=== PATIENT | male | born 1970 | race Hispanic/Latino ===

== ENCOUNTER 2018-01-29 12:39 | Inpatient (IN) | payer OTHER ==
[~2018-01-29] VITALS: Ht 170.2 cm; Wt 90.0 kg
[2018-01-29] MEDS ORDERED: DYMISTA NASAL S23 GM NASB (13:24)
[2018-01-29] MEDS ORDERED: XYZAL5 M1 PO (13:24)
[2018-01-29] MEDS ORDERED: PAZEO2.5 ML OU (13:25)
--- NOTE | 2018-01-29 13:29 | ED INFLUENZA/URI COMPLAINT ---
History of Present Illness General Chief Complaint: Upper Respiratory Sx/Fever Stated Complaint: URI Source: patient, family Exam Limitations: no limitations Vital Signs & Intake/Output Vital Signs & Intake/Output Vital Signs Date Time Temp Pulse Resp B/P B/P Pulse O2 O2 Flow FiO2 Mean Ox Delivery Rate 01/29 1319 99.1 01/29 1253 99.1 104 16 101/67 94 Room Air Allergies Coded Allergies: No Known Allergies (01/29/18) Reconcile Medications Azelastine/Fluticasone (Dymista Nasal [place]) 137 MCG-50 MCG/SPRAY SPRAY.PUMP 1 SPRAY NASB BID ALLERGIES (Reported) Levocetirizine Dihydrochloride (Xyzal) 5 MG TABLET 1 TAB PO DAILY ALLERGIES ( Reported) Olopatadine HCl (Pazeo) 0.7 % DROPS 1 DROP OU DAILY ALLERGIES (Reported) Triage Note: PT STATES HE WAS IN [place] COUNTRY A FEW WEEKS AGO AND NOW HE IS HAVING FEVER CHILLS AND SOB. Triage Nurses Notes Reviewed? yes HPI: 47M no significant PMH presenting with 3 days of fever, chills, productive cough with yellow sputum and dark urine. Recently returned from a trip to [facility] where he was bitten by lots of [place]itos in the [place]. No one else got sick, and no sick contacts. He had malaria when he was 6 years old. Never had TB. Poor appetite, poor PO intake. Denies headache, stiff neck, sore throat, chest pain, abdominal pain, diarrhea, dysuria. Past History Travel History Traveled to [place] past 21 day No Medical History Any Pertinent Medical History? see below for history Cardiovascular: hypertension, hyperlipidemia Endocrine: PRE DIABETIC Surgical History Surgical History: non-contributory Psychosocial History What is your primary language Portuguese Tobacco Use: Never used ETOH Use: occasional use Illicit Drug Use: denies illicit drug use Family History Hx Contributory? No Review of Systems Review of Systems Constitutional: Reports: no symptoms. EENTM: Reports: no symptoms. Respiratory: Reports: no symptoms. Cardiovascular: Reports: no symptoms. GI: Reports: no symptoms. Genitourinary: Reports: no symptoms. Musculoskeletal: Reports: no symptoms. Skin: Reports: no symptoms. Neurological/Psychological: Reports: no symptoms. Hematologic/Endocrine: Reports: no symptoms. Immunologic/Allergic: Reports: no symptoms. All Other Systems: Reviewed and Negative Physical Exam Physical Exam General Appearance: well developed/nourished, mild distress Head: atraumatic, normal appearance Eyes: Bilateral: normal appearance, PERRL, EOMI. Ears, Nose, Throat: normal ENT inspection, DRY MUCOUS MEMBRANES Neck: normal inspection, full range of motion Respiratory: normal breath sounds, chest non-tender, no respiratory distress Cardiovascular: regular rate/rhythm Gastrointestinal: soft, non-tender Back: normal inspection, normal range of motion Extremities: normal inspection, normal range of motion Neurologic/Psych: awake, alert, oriented x 3, normal mood/affect Skin: intact, normal color, warm/dry Core Measures Sepsis Present: No Sepsis Focused Exam Completed? No Progress Differential Diagnosis: influenza, meningitis, neutropenia, otitis, pneumonia, pharyngitis, sinusitis Plan of Care: Orders Procedure Date/time Status Regular Diet 01/29 D Active ED Holding Orders 01/29 1405 Active Admit to inpatient 01/29 1405 Active Vital Signs 01/29 1405 Active Isolation 01/29 1405 Active Code Status 01/29 1405 Active LOWER RESPIRATORY CULTURE 01/29 1403 Active Add-on Test (ER Only) 01/29 1402 Active AFB 2 WITH SMEAR 01/29 1357 Active AFB 1 WITH SMEAR 01/29 1357 Active LDH (LACT ACID DEHYDROGENASE) 01/29 1332 Active Add-on Test (ER Only) 01/29 1324 Active BLOOD CULTURE 01/29 1320 Active HAPTOGLOBIN 01/29 1320 Active D-DIMER 01/29 1258 Active URINALYSIS 01/29 1256 Active TROPONIN LEVEL 01/29 1256 Active COMPREHENSIVE METABOLIC PANEL 01/29 1256 Active CBC WITHOUT DIFFERENTIAL 01/29 1256 Complete EKG 01/29 1256 Active Current Medications Sig/Elvira Start time Last Medication Dose Stop Time Status Admin Sodium Chloride 1,000 ML BOLUS ONE 01/29 1330 AC (Normal Saline 0.9%) 01/29 1429 Sodium Chloride 1,000 ML BOLUS ONE 01/29 1330 AC (Normal Saline 0.9%) 01/29 1429 Laboratory Tests 01/29/18 1332: Haptoglobin Pending 01/29/18 1332: Sodium Pending, Potassium Pending, Chloride Pending, Carbon Dioxide Pending, Anion Gap Pending, BUN Pending, Creatinine Pending, BUN/Creatinine Ratio Pending , Glucose Pending, Calcium Pending, Total Bilirubin Pending, AST Pending, ALT Pending, Alkaline Phosphatase Pending, Lactate Dehydrogenase Pending, Troponin I Pending, Total Protein Pending, Albumin Pending, Globulin Pending, Albumin/ Globulin Ratio Pending, D-Dimer High Sensitivty Pending, CBC w Diff MAN DIFF ORDERED, RBC 4.17 L, MCV 93.2, MCH 32.0 H, MCHC 34.3, RDW 13.3, MPV 7.6, Gran % 87.9 H, Lymphocytes % 4.9 L, Monocytes % 2.6, Eosinophils % 4.6, Basophils % 0, Absolute Granulocytes 11.6 H, Segmented Neutrophils 84 H, Band Neutrophils 5, Absolute Lymphocytes 0.6 L, Lymphocytes 6 L, Monocytes 3, Absolute Monocytes 0.3, Eosinophils 2, Absolute Eosinophils 0.6, Absolute Basophils 0, Polychromasia 1+, Anisocytosis 1+ 01/29/18 1320: Lactate Dehydrogenase Cancelled Microbiology 01/29 1403 LOWER RESP: Respiratory Culture - ORD 01/29 1403 LOWER RESP: Gram Stain - ORD 01/29 1357 LOWER RESP: AFB Culture with PCR Identification - ORD 01/29 1357 LOWER RESP: AFB Culture with PCR Identification - ORD 01/29 1357 LOWER RESP: AFB Smear Concentration - ORD 01/29 1332 BLOOD: Blood Culture - RECD 01/29 1325 BLOOD: Blood Culture - RECD Patient placed on airborne precautions, N95 masks only, will admit to medicine, ID consult. Diagnostic Imaging: Viewed by Me: Radiology Read. Discussed w/RAD: Radiology Read. Radiology Impression: PATIENT: STACY EVERETT PRESENT AGE: 47 PATIENT ACCOUNT NO: [id number] : 68 LOCATION: [facility] ORDERING PHYSICIAN: Syd LEI SERVICE DATE: 01/29/18-1256 EXAM TYPE: RAD - XRY-CHEST XRAY, TWO VIEWS EXAMINATION: XR CHEST CLINICAL INFORMATION: Chest pain, shortness of breath and fever COMPARISON: None TECHNIQUE: 2 views of the chest were obtained. FINDINGS: The cardiac and mediastinal contours are normal. There is atelectasis or small infiltrate at the left lung base. There is increased density at the right lung apex. This may be related to superimposition of bony structures, right first and third ribs and clavicle. The lungs are otherwise clear. There is no pleural effusion or pneumothorax. Bony structures are unremarkable. IMPRESSION: Atelectasis or small infiltrate at the left lung base. Increased density at the right lung apex, question related to superimposition of bony structures. Follow-up chest x-ray recommended. DICTATED BY: Svetlana Currie MD DATE/TIME DICTATED:01/29/181322 BUSINESS AGENT: DOUGLAS DATE/TIME TRANSCRIBED:01/29/181322 CONFIDENTIAL, DO NOT COPY WITHOUT APPROPRIATE AUTHORIZATION. <Electronically signed in Other Vendor System> SIGNED BY: Svetlana Currie MD 01/29/181328 Initial ED EKG: normal sinus rhythm, no ST T wave changes Departure Departure Disposition: HOME OR SELF CARE Condition: Stable Clinical Impression Primary Impression: Right upper lobe pneumonia Qualifiers: Pneumonia type: due to unspecified organism Qualified Code: J18.1 - Lobar pneumonia, unspecified organism Departure Forms: Customer Survey General Discharge Information Admission Note Spoke With: German JACINTO,Amir Documentation of Exam: Documentation of any treatments & extenuating circumstances including Concerns Regarding Discharge (functional status, medication knowledge or non-compliance, living conditions, etc.) that warrant an admission rather than observation: fever, chills, dark urine with RUL infiltrate and recent trip to [facility], will admit to medicine for treatment of pneumonia, rule out TB and malaria, airborne precautions, ID consult.
[2018-01-29 13:44] LABS: ABSOLUTE BASOPHIL COUNT 0 /CUMM (0.0-0.2); ABSOLUTE EOSINOPHIL COUNT 0.6 /CUMM (0.0-0.7); ABSOLUTE GRANULOCYTE CT 11.6 /CUMM (1.4-6.5); ABSOLUTE LYMPH COUNT 0.6 /CUMM (1.2-3.4); ABSOLUTE MONOCYTE COUNT 0.3 /CUMM (0.10-0.60); BASOPHIL % 0 % (0.0-2.0); EOSINOPHIL % 4.6 % (0-5); GRANULOCYTE % 87.9 % (42.2-75.2); HEMATOCRIT 38.9 % (42-52); MEAN CORPUSCULAR HGB CONC 34.3 G/DL (33.0-37.0); MEAN CORPUSCULAR VOLUME 93.2 FL (80.0-94.0); MEAN PLATELET VOLUME 7.6 FL (7.4-10.4); PLATELET COUNT 239 /CUMM (130-400); RBC DISTRIBUTION WIDTH 13.3 % (11.5-14.5); RED BLOOD CELL CT 4.17 /CUMM (4.70-6.10); WHITE BLOOD CELL COUNT 13.2 /CUMM (4.8-10.8)
--- NOTE | 2018-01-29 14:11 | History & Physical ---
See Addendum Georgina Soto 01/29/18 1410: General Information and HPI MD Statement: I have seen and personally examined STACY GALAVIZ and documented this H&P. The patient is a 47 year old M who presented with a patient stated chief complaint of [URI]. Source of Information: patient, old records Exam Limitations: no limitations History of Present Illness: Mr. Galaviz is a 47yo M w/ PMH of HTN on lisnopril 5m qd, HEIDI on CPAP presented to ER w/ fever/chills/productive cough w/ scanty yellowish sputum and dark brown urine x 4 days, along with chest pain radiating to left/back/neck x 3 days 02/17 without relief, with recent travel to [facility] where he was bitten by a lot of [place] the [place]. Patient had malaria as a child 6yrs old, however no history of TB. He works as a [employer] for life without anybody got sick around him prior his trip to [facility] x 3 weeks and came back on 01/21. On 01/25 he started experiencing fever/chill/profuse night sweat/cough/low appetite, and also 01/26 he started to have chest pain mostly in center of chest, sharp, , radiating to left/back/neck without any relief, some degree of SOB, intermittent lightheadedness however no exertional aggravation or any particular alleviating factors. He also complained of brownish urine however no dysuria/ frequency. Today he felt he would need to see a doctor and came to ER for eval. Patient was only seeing Dr. Beltran as PCP in outpatient, and was only taking lisinopril as home meds. At baseline patient had no exerice intolerance. During our clinical interaction, patient denied sick contacts, Abdominal pain/ bowel movement or abnormality, or other skin/musculoskeletal/neurological/mood disorders, or dietary/appetite change. -Smoking: denied -Alcohol: occassional -Rec Drugs: none Allergies/Medications Allergies: Coded Allergies: No Known Allergies (01/29/18) Home Med list Azelastine/Fluticasone (Dymista Nasal [place]) 137 MCG-50 MCG/SPRAY SPRAY.PUMP 1 SPRAY NASB BID ALLERGIES (Reported) Levocetirizine Dihydrochloride (Xyzal) 5 MG TABLET 1 TAB PO DAILY ALLERGIES ( Reported) Lisinopril 5 MG TABLET 1 TAB PO DAILY HTN (Reported) Olopatadine HCl (Pazeo) 0.7 % DROPS 1 DROP OU DAILY ALLERGIES (Reported) Past History Travel History Traveled to [place] past 21 day No Medical History Cardiovascular: hypertension, hyperlipidemia Endocrine: PRE DIABETIC Surgical History Surgical History: non-contributory Past Family/Social History Psychosocial History ETOH Use: occasional use Illicit Drug Use: denies illicit drug use Review of Systems Review of Systems Constitutional: Reports: see HPI. Exam & Diagnostic Data Last 24 Hrs of Vital Signs/I&O Vital Signs Date Time Temp Pulse Resp B/P B/P Pulse O2 O2 Flow FiO2 Mean Ox Delivery Rate 01/29 1319 99.1 01/29 1253 99.1 104 16 101/67 94 Room Air Intake & Output 01/29 1600 01/29 0800 01/29 0000 Intake Total 0 Output Total 0 Balance 0 Intake, Oral 0 Output, Urine 0 Patient 83.915 kg Weight Weight Reported by Patient Measurement Method Physical Exam General Appearance Alert, Oriented X3, Cooperative, No Acute Distress Skin No Rashes, No Breakdown, No Significant Lesion Skin Temp/Moisture Exam: Warm/Dry Sepsis Skin Exam (color): Normal for Ethnicity HEENT Atraumatic, PERRLA, EOMI Neck Supple, No JVD Cardiovascular Regular Rate Lungs Clear to Auscultation, Normal Air Movement Abdomen Normal Bowel Sounds, Soft, No Tenderness, mild bilateral CVA tenderness Neurological Normal Speech, Strength at 5/5 X4 Ext Extremities No Cyanosis, No Edema, Normal Pulses Last 24 Hrs of Labs/Jeffrey: Laboratory Tests 01/29/18 1410: Urinalysis MOD H, Urine Color SOTO, Urine Clarity HAZY H, Urine pH 5.5, Ur Specific [place] >= 1.030, Urine Protein 100 H, Urine Ketones TRACE H, Urine Nitrite NEG, Urine Bilirubin NEG@ICTO, Urine Urobilinogen 4.0 H, Ur Leukocyte Esterase NEG, Ur Microscopic SEDIMENT EXAMINED, Urine RBC >75 H, Urine WBC 5-10 H, Ur Epithelial Cells FEW, Urine Bacteria MANY H, Hyaline Casts RARE H, Granular Casts FEW H, Urine Mucus FEW, Urine Hemoglobin LARGE H, Urine Glucose NEG 01/29/18 1332: Haptoglobin Pending 01/29/18 1332: Anion Gap 14, Estimated GFR 50 L, BUN/Creatinine Ratio 14.0, Glucose 124 H, Calcium 8.8, Total Bilirubin 0.8, AST 47, ALT 86 H, Alkaline Phosphatase 92, Lactate Dehydrogenase 541, Troponin I 1.56 *H, Total Protein 6.5, Albumin 3.8, Globulin 2.7, Albumin/Globulin Ratio 1.4, D-Dimer High Sensitivty 519 H, CBC w Diff MAN DIFF ORDERED, RBC 4.17 L, MCV 93.2, MCH 32.0 H, MCHC 34.3, RDW 13.3, MPV 7.6, Gran % 87.9 H, Lymphocytes % 4.9 L, Monocytes % 2.6, Eosinophils % 4.6, Basophils % 0, Absolute Granulocytes 11.6 H, Segmented Neutrophils 84 H, Band Neutrophils 5, Absolute Lymphocytes 0.6 L, Lymphocytes 6 L, Monocytes 3, Absolute Monocytes 0.3, Eosinophils 2, Absolute Eosinophils 0.6, Absolute Basophils 0, Polychromasia 1+, Anisocytosis 1+ 01/29/18 1320: Lactate Dehydrogenase Cancelled Microbiology 01/29 1403 LOWER RESP: Respiratory Culture - ORD 01/29 1403 LOWER RESP: Gram Stain - ORD 01/29 1357 LOWER RESP: AFB Culture with PCR Identification - ORD 01/29 1357 LOWER RESP: AFB Culture with PCR Identification - ORD 01/29 1357 LOWER RESP: AFB Smear Concentration - ORD 01/29 1332 BLOOD: Blood Culture - RECD 01/29 1325 BLOOD: Blood Culture - RECD Assessment/Plan Assessment: Mr. Galaviz is a 47yo M w/ PMH of HTN on lisnopril 5m qd, HEIDI on CPAP presented to ER w/ fever/chills/productive cough w/ scanty yellowish sputum and dark brown urine x 4 days, along with chest pain radiating to left/back/neck x 3 days 02/17 without relief, with recent travel to [facility] where he was [place]. At this point, with positive leukocytosis/fever/night sweat/chills/questionable positive CXR, differential Dx including any type of pneumonia, in addition to endemic disease in [facility] including TB/Malaria/Dengue fever, as well as tick-borne disease as patient had been a long time resident of [place], despite no memory of tick bite. HIV/Hepatitis could also contribute to certain suddent onset of fever, that the acuity of onset may go against TB infection without a disseminating picture on CXR. 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 Patient's chest pain was also concerning especially with elevated troponin despite any EKG change, yet no previous EKG to compare. Patient denied any cardiac history and he has been in [place] x 3 days, with fever/chills, thus myosititis coult not be excluded as well. On admission, Vitals: Stable afebrile, tachycardia 104, RR 16, BP 101/67, 94% on room air -CBC: Leukocytosis 15.2, H/H 13.4/48.9, PLT 249 -BMP: elevated Cr 1.5, Trop 1.56, otherwises unremarkable -PT/INR: none. DDimer 579 -UA/Microbiology: +RBC/Hgb, -ve LE -CXR: Atelectasis or small infiltrate at the left lung base. Increased density at the right lung apex, question related to superimposition of bony structures. Follow-up chest x-ray recommended. -EKG: NSR w/o significant ST-T abnormalities. -Last Echo: No previous record in our system -Interventions in ER: Zofran 1, Motrin 1, normal saline bolus 2 Problem list/Assessment/Hospital Course: #Fever of unknown origin, pending further evaluation #Rule out tuberculosis or other infection/inflammatory etiology as above #BHARGAVI, 2/2 dehydration? #Hematuria, unclear etiology #Elevated Trop pending further eval #PMH of HTN - Admit to Telemetry - Vitals per protocol, monitor I&O per protocol. - EKG/Trop x 2 to trend. point pending rule out tuberculosis -Patient has no specific home medications to be continued at this point except Lisinopril, will hold lisinopril due to BHARGAVI and restart once stablized -Pending Chest CTA to rule out PE and further eval the CXR result -Pending microbiology results including blood culture, sputum AFB and culture, HIV/Hepatitis/Lyme panel -Would continue vanco/ceftaz for now to cover if any underlying infection, and tailor ABx per clinical course. - Pending Cardio consult - Patient would need Echo for further eval. -Pain management for pathway DVT prophylaxis Heparin SC + ALPS Regular Diet IV Access: Peripheral IV Full Code As Ranked By This Provider Problem List: 1. Right upper lobe pneumonia Qualifiers Pneumonia type: due to unspecified organism Qualified Code: J18.1 - Lobar pneumonia, unspecified organism Core Measures/Misc (03/27) Acute Coronary Syndrome ACS Diagnosis: No Congestive Heart Failure Congestive Heart Failure Diagnosis No Cerebrovascular Accident CVA/TIA Diagnosis: No VTE (View Protocol) VTE Risk Factors Age>40 No Mechanical VTE Prophylaxis d/t N/A MechProphylax Ordered No VTE Pharm Prophylaxis d/t NA PharmProphylax ordered Sepsis (View protocol) Sepsis Present: No If YES complete Sepsis Event Note If YES complete Sepsis Event Note German JACINTO,Amir 01/29/18 1813: Core Measures/Misc (03/27) Sepsis (View protocol) If YES complete Sepsis Event Note If YES complete Sepsis Event Note Attending MD Review Statement Attending Statement Attending MD Statement: examined this patient, discuss w/resident/PA/PUBLIC AFFAIRS DIRECTOR, agreed w/resident/PA/PUBLIC AFFAIRS DIRECTOR, discussed with family, reviewed EMR data (avail), discussed with nursing Attending Assessment/Plan: Mr. Galaviz was seen and evaluated. Briefly, he is a 47 yo M, funeral service apprentice, with PMHx HTN, recent travel to [facility] a/w fever, chills, weakness and chest pain x 4 days. Pt reports that on 01/25 he started experiencing fever/chill/profuse night sweat/cough/low appetite, and also 01/26 he started to have chest pain mostly in center of chest, sharp, 8/10, radiating to left/back/neck without any relief, some degree of SOB. However continued to work (as a funeral service apprentice) until yesterday. Of note, he reports mosquito bites while he was in [facility]. He also complained of brownish urine however no dysuria/frequency. CXR: Atelectasis or small infiltrate at the left lung base. Increased density at the right lung apex, question related to superimposition of bony structures. A/P: broad spectrum abx, send cultures, ID eval, 2D Echo, cards consult for +trop
--- NOTE | 2018-01-29 16:50 | Admission Certification ---
Admission Certification Certification Statement - As attending physician, I certify that at the time of - admission, based on clinical presentation, severity of - symptoms, need for further diagnostic testing and - therapeutic interventions, and risk of adverse outcomes - without in-hospital treatment, in my clinical assessment, - this patient requires an acute hospital stay for a minimum - of two nights or longer. I have also considered psychsocial - factors such as support system, advanced age, financial - issues, cognitive issues, and failed out-patient treatments, - past re-admission history, safety of patient, and lack of - compliance as applicable. Specific rationale supporting this admission is: Chest pain, weakness
[2018-01-29] MEDS ORDERED: LISINOPRIL5 M1 PO (17:17)
[2018-01-29 21:46] VITALS: BP 140/70
--- NOTE | 2018-01-29 21:48 | CT SCAN REPORT ---
EXAMINATION: CT CHEST with contrast CLINICAL INFORMATION: Rule out PE COMPARISON: None TECHNIQUE: Volumetric imaging was performed through the chest. Reformatted coronal and sagittal imaging was performed. CONTRAST: 95 mL Optiray 320 injected FINDINGS: PULMONARY ARTERIES: There are no large emboli. There is less than 2 mm filling defect in a small branch of the LEFT pulmonary artery image marked. Also opacification of distal branches of RIGHT pulmonary artery, could be artifactual differential flow, cannot entirely rule out the possibility of very small emboli. LINES/TUBES: None LUNGS: Lung Parenchyma: There is a prominence of the pulmonary vasculature, there is interstitial interlobular septal edema fluid suggesting congestion. Mild patchy opacities probably infiltrate LEFT lower lobe, RIGHT lower lobe and RIGHT upper lobe. Lung Nodules: Is difficult to assess for lung nodule given the diffuse interstitial process. There is nodule RIGHT lower lobe 9 x 7 mm. AIRWAYS: Trachea and bronchi are normal. PLEURA: No pleural effusion or pneumothorax. MEDIASTINUM AND ROCIO: The visualized thyroid gland is unremarkable. Mild fullness of the lymphatics might be reactive. No bulky adenopathy. There is no mediastinal mass. VESSELS: Thoracic aorta is normal in size. HEART AND PERICARDIUM: There is pericardial effusion. The fluid measure up to 8.5 mm thickness. There are coronary calcifications. CHEST WALL, LOWER NECK, SURROUNDING SOFT TISSUES: Normal VISUALIZED ABDOMEN: Unremarkable BONES: The visualized bony thorax is within normal limits. IMPRESSION: 1. Study is negative for large emboli. There is however single tiny 2 mm filling defect in a small branch of LEFT pulmonary artery and incomplete opacification of the distal subsegmental branches to the RIGHT lower lobe, this could be artifactual, cannot entirely rule out the possibility of small or old emboli. 2. There is pulmonary vascular congestion. There is mild interstitial edema, interlobular septal fluid suggesting congestion. There is pericardial effusion. 3. Scattered patchy pulmonary opacities, concerning for superimposed infiltrates. Bilateral apical pleural-based opacities the largest in the RIGHT upper lobe measure up to 2.6 x 1.7 cm, this might be consolidation infection. Short-term follow-up would be recommended to rule out underlying neoplasm. Consider repeat chest CT in 2 months. 4. Fullness of the lymph nodes in the mediastinum and RIGHT hilum might be reactive.
[2018-01-30 04:38] VITALS: BP 168/72
--- NOTE | 2018-01-30 07:27 | PN- Housestaff ---
Objective Last 24 Hrs of Vital Signs/I&O Vital Signs Date Time Temp Pulse Resp B/P B/P Pulse O2 O2 Flow FiO2 Mean Ox Delivery Rate 01/30 0515 100.9 01/30 0438 100.9 121 24 168/72 92 Nasal 2.0L Cannula 01/30 0000 Nasal 2.0L Cannula 01/29 2304 99.9 01/29 2146 99.9 127 20 140/70 98 Nasal 4.0L Cannula 01/30 2144 99 Nasal 2.0L Cannula 01/30 2104 98 Nasal 2.0L Cannula 01/29 2005 98.6 75 24 101/64 94 Room Air 01/29 1908 98.7 120 24 98/64 95 Room Air 01/29 1758 98.7 01/29 1722 112 18 120/68 96 Room Air 01/29 1425 108 18 102/62 93 01/29 1422 Room Air 01/29 1319 99.1 01/29 1253 99.1 104 16 101/67 94 Room Air Intake & Output 01/30 0800 01/30 0000 01/29 1600 Intake Total 320 75 0 Output Total 0 Balance 320 75 0 Intake, IV 100 Intake, Oral 220 75 0 Output, Urine 0 Patient 89.471 kg 83.915 kg Weight Weight Bed scale Reported by Patient Measurement Method Current Medications: Current Medications Sig/Elvira Start time Last Medication Dose Route Stop Time Status Admin Acetaminophen 1,000 MG ONCE ONE 01/30 0445 DC 01/30 IV 01/30 0446 0515 Acetaminophen 650 MG ONCE ONE 01/29 2245 DC 01/29 PO 01/29 2246 2304 Ceftazidime 1,000 MG IQ8 01/30 0000 AC 01/30 IV 0028 Ceftazidime 0 .STK-MED ONE 01/29 1457 DC .ROUTE Ceftazidime 1,000 MG ONCE ONE 01/29 1430 DC 01/29 IV 01/29 1431 1511 Ibuprofen 0 .STK-MED ONE 01/29 1316 DC PO Ibuprofen 800 MG ONCE ONE 01/29 1300 DC 01/29 PO 01/29 1301 1319 Lisinopril 0 .STK-MED ONE 01/29 1812 DC PO Lisinopril 5 MG DAILY 01/29 1718 DC 01/29 PO 1934 Ondansetron HCl 0 .STK-MED ONE 01/29 1315 DC PO Ondansetron HCl 4 MG ONCE ONE 01/29 1300 DC 01/29 PO 01/29 1301 1319 Sodium Chloride 1,000 ML BOLUS ONE 01/29 1430 DC 01/29 IV 01/29 1529 1719 Sodium Chloride 1,000 ML BOLUS ONE 01/29 1330 DC 01/29 IV 01/29 1429 1415 Sodium Chloride 1,000 ML BOLUS ONE 01/29 1330 DC 01/29 IV 01/29 1429 1511 Vancomycin HCl 1,250 MG 1200 01/30 1200 AC Sodium Chloride 250 ML IV Vancomycin HCl 0 .STK-MED ONE 01/29 1457 DC .ROUTE Vancomycin HCl 1,000 MG ONCE ONE 01/29 1430 DC 01/29 Sodium Chloride 250 ML IV 01/29 1529 1511 Last 24 Hrs of Lab/Jeffrey Results Last 24 Hrs of Labs/Mics: Laboratory Tests 01/30/18 0500: Urine Color Pending, Urine Clarity Pending, Urine pH Pending, Ur Specific [place] Pending, Urine Protein Pending, Urine Ketones Pending, Urine Nitrite Pending, Urine Bilirubin Pending, Urine Urobilinogen Pending, Ur Leukocyte Esterase Pending, Ur Microscopic Pending, Urine Hemoglobin Pending, Urine Glucose Pending 01/30/18 0415: Troponin I 1.50 *H 01/29/18 2005: Troponin I 1.47 *H 01/29/18 2000: PT Cancelled, INR Cancelled 01/29/18 1750: Lyme Disease Antibody Pending 01/29/18 1750: Lactic Acid 1.3, Hepatitis A IgM Ab Pending, Hep Bs Antigen Pending, Hep B Core IgM Ab Conf Pending, Hepatitis C Antibody Pending, HIV 1&2 Ab Western Blot NONREACTIVE 01/29/18 1421: Lactic Acid Cancelled 01/29/18 1410: Urinalysis MOD H, Urine Color SOTO, Urine Clarity HAZY H, Urine pH 5.5, Ur Specific [place] >= 1.030, Urine Protein 100 H, Urine Ketones TRACE H, Urine Nitrite NEG, Urine Bilirubin NEG@ICTO, Urine Urobilinogen 4.0 H, Ur Leukocyte Esterase NEG, Ur Microscopic SEDIMENT EXAMINED, Urine RBC >75 H, Urine WBC 5-10 H, Ur Epithelial Cells FEW, Urine Bacteria MANY H, Hyaline Casts RARE H, Granular Casts FEW H, Urine Mucus FEW, Urine Hemoglobin LARGE H, Urine Glucose NEG 07/22/18 1332: Haptoglobin Pending 01/29/18 1332: Anion Gap 14, Estimated GFR 50 L, BUN/Creatinine Ratio 14.0, Glucose 124 H, Calcium 8.8, Total Bilirubin 0.8, AST 47, ALT 86 H, Alkaline Phosphatase 92, Lactate Dehydrogenase 541, Troponin I 1.56 *H, Total Protein 6.5, Albumin 3.8, Globulin 2.7, Albumin/Globulin Ratio 1.4, D-Dimer High Sensitivty 519 H, CBC w Diff MAN DIFF ORDERED, RBC 4.17 L, MCV 93.2, MCH 32.0 H, MCHC 34.3, RDW 13.3, MPV 7.6, Gran % 87.9 H, Lymphocytes % 4.9 L, Monocytes % 2.6, Eosinophils % 4.6, Basophils % 0, Absolute Granulocytes 11.6 H, Segmented Neutrophils 84 H, Band Neutrophils 5, Absolute Lymphocytes 0.6 L, Lymphocytes 6 L, Monocytes 3, Absolute Monocytes 0.3, Eosinophils 2, Absolute Eosinophils 0.6, Absolute Basophils 0, Polychromasia 1+, Anisocytosis 1+ 01/29/18 1320: Lactate Dehydrogenase Cancelled Microbiology 01/29 1403 LOWER RESP: Respiratory Culture - COLB 01/29 1403 LOWER RESP: Gram Stain - COLB 01/29 1357 LOWER RESP: AFB Culture with PCR Identification - COLB 01/29 1357 LOWER RESP: AFB Culture with PCR Identification - COLB 01/29 1357 LOWER RESP: AFB Smear Concentration - COLB 01/29 1332 BLOOD: Blood Culture - RECD 01/29 1325 BLOOD: Blood Culture - RECD
--- NOTE | 2018-01-30 07:30 | PN-Observation ---
Observation Note Observation Note _ INADVERTENTLY SELECTED OBSERVATION NOTE TEMPLATE, PATIENT IS AN INPATIENT ADMISSION I have personally examined STACY EVERETT. him disposition is uncertain at this time. Before a determination can be made, he requires continued observation for the following reasons [elevated troponins with atypical chest pain, with low- voltage EKG without specific changes]. Assessment/Plan Medical Assessment: 47 year old male with PMH of HTN and HEIDI with recent travel to [facility], presented to the ED with fever, chills, cough and chest pain, found to have elevated troponins with low-voltage EKG. Problem List: 1. Fever 2. Pericardial effusion 3. Elevated troponin 4. Pneumonia Plan: PATIENT IS A FULL ADMISSION, OBSERVATION NOTE SELECTED IN ERROR * Follow-up echocardiogram * V/Q scan in setting of filling defects of pulmonary arteries on CTA * Follow-up QuantiFeron * ID recommends D/C airborne precautions, as likely not TB * Medical records obtained from patients "primary care", but did not contain EKG , as the patient provided contact information for an HEIDI/sleep study clinic, who then listed his primary care as Bruno Beltran ...this number was not accepting incoming calls at the time, will follow-up and re-check with patient to find prior EKG for comparison DVT prophylaxis Heparin SC + ALPS Regular Diet Labs: CBC & BEP Full Code Subjective Follow-up For: Pericardial effusion Possible pneumonia Tele-Events Since Last Visit: Normal sinus rhythm at a rate of 67, sinus bradycardia at rate of 59 Subjective: Patient seen sitting comfortably in the bed, on 4L oxygen with the nasal cannula , the patient reports that this is helping with his shortness of breath, and that he has a dry cough currently. The patient reports that he has been experiencing chest pain bilaterally across the lower region of his chest, which is like a squeezing sensation. Since eating breakfast, he has been experiencing a sharp abdominal pain, in the mid-epigastrium that is worse when he leans forward. He also has a headache, and chills, but denies diaphoresis or feeling feverish. Review of Systems Constitutional: Reports: chills. Denies: fever, weakness. Cardiovascular: Reports: chest pain. Denies: edema, orthopena, palpitations. Respiratory: Reports: cough, short of breath. Denies: wheezing. Gastrointestinal: Denies: abdominal pain, nausea, vomiting. Musculoskeletal: Denies: muscle pain, muscle stiffness. Objective Last 24 Hrs of Vital Signs/I&O Vital Signs Date Time Temp Pulse Resp B/P B/P Pulse O2 O2 Flow FiO2 Mean Ox Delivery Rate 01/30 0515 100.9 01/30 0438 100.9 121 24 168/72 92 Nasal 2.0L Cannula 01/30 0000 Nasal 2.0L Cannula 01/29 2304 99.9 01/296 99.9 127 20 140/70 98 Nasal 4.0L Cannula 01/30 2144 99 Nasal 2.0L Cannula 01/30 2104 98 Nasal 2.0L Cannula 01/29 2005 98.6 75 24 101/64 94 Room Air 01/29 1908 98.7 120 24 98/64 95 Room Air 01/29 1758 98.7 01/29 1722 112 18 120/68 96 Room Air 01/29 1425 108 18 102/62 93 01/29 1422 Room Air 01/29 1319 99.1 01/29 1253 99.1 104 16 101/67 94 Room Air Intake & Output 01/30 0800 01/30 0000 01/29 1600 Intake Total 320 75 0 Output Total 0 Balance 320 75 0 Intake, IV 100 Intake, Oral 220 75 0 Output, Urine 0 Patient 89.471 kg 83.915 kg Weight Weight Bed scale Reported by Patient Measurement Method Physical Exam General Appearance: Alert, Oriented X3, Cooperative, No Acute Distress HEENT: Atraumatic, PERRLA Cardiovascular: Regular Rate, Normal S1, Normal S2 Lungs: Clear to Auscultation Abdomen: Normal Bowel Sounds, Soft Current Medications: Current Medications Sig/Elvira Start time Last Medication Dose Route Stop Time Status Admin Acetaminophen 1,000 MG ONCE ONE 01/30 0445 DC 01/30 IV 01/30 0446 0515 Acetaminophen 650 MG ONCE ONE 01/29 2245 DC 01/29 PO 01/29 2246 2304 Ceftazidime 1,000 MG IQ8 01/30 0000 AC 01/30 IV 0028 Ceftazidime 0 .STK-MED ONE 01/29 1457 DC .ROUTE Ceftazidime 1,000 MG ONCE ONE 01/29 1430 DC 01/29 IV 01/29 1431 1511 Ibuprofen 0 .STK-MED ONE 01/29 1316 DC PO Ibuprofen 800 MG ONCE ONE 01/29 1300 DC 01/29 PO 01/29 1301 1319 Lisinopril 0 .STK-MED ONE 01/29 1812 DC PO Lisinopril 5 MG DAILY 01/29 1718 DC 01/29 PO 1934 Ondansetron HCl 0 .STK-MED ONE 01/29 1315 DC PO Ondansetron HCl 4 MG ONCE ONE 01/29 1300 DC 01/29 PO 01/29 1301 1319 Sodium Chloride 1,000 ML BOLUS ONE 01/29 1430 DC 01/29 IV 01/29 1529 1719 Sodium Chloride 1,000 ML BOLUS ONE 01/29 1330 DC 01/29 IV 01/29 1429 1415 Sodium Chloride 1,000 ML BOLUS ONE 01/29 1330 DC 01/29 IV 01/29 1429 1511 Vancomycin HCl 1,250 MG 1200 01/30 1200 AC Sodium Chloride 250 ML IV Vancomycin HCl 0 .STK-MED ONE 01/29 1457 DC .ROUTE Vancomycin HCl 1,000 MG ONCE ONE 01/29 1430 DC 01/29 Sodium Chloride 250 ML IV 01/29 1529 1511 Last 24 Hrs of Labs/Mics: Laboratory Tests 01/30/18 0500: Urine Color Pending, Urine Clarity Pending, Urine pH Pending, Ur Specific [place] Pending, Urine Protein Pending, Urine Ketones Pending, Urine Nitrite Pending, Urine Bilirubin Pending, Urine Urobilinogen Pending, Ur Leukocyte Esterase Pending, Ur Microscopic Pending, Urine Hemoglobin Pending, Urine Glucose Pending 01/30/18 0415: Troponin I 1.50 *H 01/29/18 2005: Troponin I 1.47 *H 01/29/18 2000: PT Cancelled, INR Cancelled 01/29/18 1750: Lyme Disease Antibody Pending 01/29/18 1750: Lactic Acid 1.3, Hepatitis A IgM Ab Pending, Hep Bs Antigen Pending, Hep B Core IgM Ab Conf Pending, Hepatitis C Antibody Pending, HIV 1&2 Ab Western Blot NONREACTIVE 01/29/18 1421: Lactic Acid Cancelled 01/29/18 1410: Urinalysis MOD H, Urine Color SOTO, Urine Clarity HAZY H, Urine pH 5.5, Ur Specific [place] >= 1.030, Urine Protein 100 H, Urine Ketones TRACE H, Urine Nitrite NEG, Urine Bilirubin NEG@ICTO, Urine Urobilinogen 4.0 H, Ur Leukocyte Esterase NEG, Ur Microscopic SEDIMENT EXAMINED, Urine RBC >75 H, Urine WBC 5-10 H, Ur Epithelial Cells FEW, Urine Bacteria MANY H, Hyaline Casts RARE H, Granular Casts FEW H, Urine Mucus FEW, Urine Hemoglobin LARGE H, Urine Glucose NEG 01/29/18 1332: Haptoglobin Pending 01/29/18 1332: Anion Gap 14, Estimated GFR 50 L, BUN/Creatinine Ratio 14.0, Glucose 124 H, Calcium 8.8, Total Bilirubin 0.8, AST 47, ALT 86 H, Alkaline Phosphatase 92, Lactate Dehydrogenase 541, Troponin I 1.56 *H, Total Protein 6.5, Albumin 3.8, Globulin 2.7, Albumin/Globulin Ratio 1.4, D-Dimer High Sensitivty 519 H, CBC w Diff MAN DIFF ORDERED, RBC 4.17 L, MCV 93.2, MCH 32.0 H, MCHC 34.3, RDW 13.3, MPV 7.6, Gran % 87.9 H, Lymphocytes % 4.9 L, Monocytes % 2.6, Eosinophils % 4.6, Basophils % 0, Absolute Granulocytes 11.6 H, Segmented Neutrophils 84 H, Band Neutrophils 5, Absolute Lymphocytes 0.6 L, Lymphocytes 6 L, Monocytes 3, Absolute Monocytes 0.3, Eosinophils 2, Absolute Eosinophils 0.6, Absolute Basophils 0, Polychromasia 1+, Anisocytosis 1+ 01/29/18 1320: Lactate Dehydrogenase Cancelled Microbiology 01/29 1403 LOWER RESP: Respiratory Culture - COLB 01/29 1403 LOWER RESP: Gram Stain - COLB 01/29 1357 LOWER RESP: AFB Culture with PCR Identification - COLB 01/29 1357 LOWER RESP: AFB Culture with PCR Identification - COLB 01/29 1357 LOWER RESP: AFB Smear Concentration - COLB 01/29 1332 BLOOD: Blood Culture - RECD 01/29 1325 BLOOD: Blood Culture - RECD
[2018-01-30 09:40] LABS: ABSOLUTE BASOPHIL COUNT 0 /CUMM (0.0-0.2); ABSOLUTE EOSINOPHIL COUNT 0.6 /CUMM (0.0-0.7); ABSOLUTE GRANULOCYTE CT 10.8 /CUMM (1.4-6.5); ABSOLUTE LYMPH COUNT 0.9 /CUMM (1.2-3.4); ABSOLUTE MONOCYTE COUNT 0.3 /CUMM (0.10-0.60); BASOPHIL % 0.1 % (0.0-2.0); EOSINOPHIL % 4.4 % (0-5); GRANULOCYTE % 86.1 % (42.2-75.2); HEMATOCRIT 35.3 % (42-52); MEAN CORPUSCULAR HGB CONC 34.1 G/DL (33.0-37.0); MEAN PLATELET VOLUME 7.6 FL (7.4-10.4); PLATELET COUNT 243 /CUMM (130-400); RBC DISTRIBUTION WIDTH 13.6 % (11.5-14.5); RED BLOOD CELL CT 3.75 /CUMM (4.70-6.10); WHITE BLOOD CELL COUNT 12.5 /CUMM (4.8-10.8)
--- NOTE | 2018-01-30 11:19 | PN- Att Addend ---
Attending Addendum Attending Brief Note Patient seen and examined. Resting comfortably not in any acute distress. Afebrile overnight. Hemodynamically stable. No events reported by nursing staff. Complains of left-sided chest discomfort nonradiating on and off. He reports that pain has been occurring with exertion prior to admission. Denies any pain currently. Denies shortness of breath. Admits to mild cough. Denies hemoptysis. Cardiac enzymes were elevated on admission at 1.56. Trended down mildly to 1.47 yesterday. I will begin to 1.50 today. EKG shows sinus rhythm with what appears to be mild ST elevation of V2 on EKG done yesterday. Vital Signs Date Time Temp Pulse Resp B/P B/P Pulse O2 O2 Flow FiO2 Mean Ox Delivery Rate 01/30 0515 100.9 01/30 0438 100.9 121 24 168/72 92 Nasal 2.0L Cannula 01/30 0000 Nasal 2.0L Cannula 01/29 2304 99.9 01/296 99.9 127 20 140/70 98 Nasal 4.0L Cannula 01/30 2144 99 Nasal 2.0L Cannula 01/294 98 Nasal 2.0L Cannula 01/29 2005 98.6 75 24 101/64 94 Room Air 01/29 1908 98.7 120 24 98/64 95 Room Air 01/29 1758 98.7 01/29 1722 112 18 120/68 96 Room Air 01/29 1425 108 18 102/62 93 01/29 1422 Room Air 01/29 1319 99.1 01/29 1253 99.1 104 16 101/67 94 Room Air General appearance: Well-developed and not in any acute distress. HEENT: Anicteric, no pallor, pupils equal and reactive. Neck: Supple with no jugular venous distention. Heart: S1-S2 regular with no audible murmur. Lungs: Adequate and symmetric air entry bilaterally with mild bibasilar crackles. Abdomen: Nondistended with normal bowel sounds. Soft, nontender with no palpable masses. Extremities: No pedal edema. No cyanosis. Skin: Intact Problems: 1. Myocardial infarction 2. Pericardial effusion 3. Pulmonary vascular congestion 4. Fever; bilateral, Apical opacities the largest in the right upper lobe and recent travel to [facility] raise concern for tuberculosis. Plan: -Begin patient on aspirin, high-dose statin. -Add beta-alex therapy with metoprolol 12.5 mg orally twice daily. Monitor blood pressure closely as patient was in the 90s and low 100s yesterday. -Begin patient on heparin infusion. -Obtain echocardiogram to evaluate ejection fraction, wall motion and further evaluate the size of his pericardial effusion. -Obtain urgent cardiology consultation. -Continue empiric antibiotic therapy pending ID consultation. Obtain sputum cultures if possible. Check Gold QuantiFERON. Follow blood cultures. -Given his recent travel and reports of mosquito bites would recommend obtaining peripheral smear. -Repeat transaminases. Check right upper quadrant sonogram. Viral hepatitis serologies negative. -Patient noted to have microscopic hematuria. If persistent at the time of discharge recommend follow-up with urology service upon discharge.
--- NOTE | 2018-01-30 12:48 | Cons- Cardiology ---
General Information and HPI Consulting Request Date of Consult: 01/30/18 Requested By: Tamara Sharp MD Reason for Consult: Chest discomfort and positive troponin I. Source of Information: patient Exam Limitations: no limitations History of Present Illness: Mr. Antony Galaviz is a 47-year-old male with a history of hypertension, dyslipidemia, prediabetes, and obstructive sleep apnea on BiPAP who presented to the ED on 01/29/2018 with complaints of feverish feelings, chills, occasional minimally productive cough, joint pain, headache, chest discomfort, and shortness of breath that began on , 01/26/2018. The chest discomfort was described as precordial, nonradiating, "sharp", constant, and initially severe ("9/10") that gradually improved ("5/10"), but prompted him seeking medical attention when it did not resolve. There was no change in the discomfort with position, but it was exacerbated by his occasional , minimally productive cough. He recently returned from a three-week trip to [facility] where he visited his mother who had pneumonia. He denies any history of known coronary, valvular, dysrhythmic/conduction disease, or cardiomyopathy. Allergies/Medications Allergies: Coded Allergies: No Known Allergies (01/29/18) Home Med List: Azelastine/Fluticasone (Dymista Nasal [place]) 137 MCG-50 MCG/SPRAY SPRAY.PUMP 1 SPRAY NASB BID ALLERGIES (Reported) Levocetirizine Dihydrochloride (Xyzal) 5 MG TABLET 1 TAB PO DAILY ALLERGIES ( Reported) Lisinopril 5 MG TABLET 1 TAB PO DAILY HTN (Reported) Olopatadine HCl (Pazeo) 0.7 % DROPS 1 DROP OU DAILY ALLERGIES (Reported) Review of Systems Review of Systems: A 14 point system review was obtained was noncontributory, other than as above, except for the fact that he wears glasses. 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 Psychosocial History Where Do You Live? Home Smoking Status: Never Smoked ETOH Use: occasional use Illicit Drug Use: denies illicit drug use Exam & Diagnostic Data Vital Signs and I&O Vital Signs Date Time Temp Pulse Resp B/P B/P Pulse O2 O2 Flow FiO2 Mean Ox Delivery Rate 01/30 0515 100.9 01/30 0438 100.9 121 24 168/72 92 Nasal 2.0L Cannula 01/30 0000 Nasal 2.0L Cannula 01/29 2304 99.9 01/296 99.9 127 20 140/70 98 Nasal 4.0L Cannula 01/30 2144 99 Nasal 2.0L Cannula 01/30 2104 98 Nasal 2.0L Cannula 01/29 2005 98.6 75 24 101/64 94 Room Air 01/29 1908 98.7 120 24 98/64 95 Room Air 01/29 1758 98.7 01/29 1722 112 18 120/68 96 Room Air 01/29 1425 108 18 102/62 93 01/29 1422 Room Air 01/29 1319 99.1 01/29 1253 99.1 104 16 101/67 94 Room Air Intake & Output 01/30 1600 01/30 0800 01/30 0000 01/29 1600 01/29 0800 01/29 0000 Intake Total 320 75 0 Output Total 0 Balance 320 75 0 Intake, IV 100 Intake, Oral 220 75 0 Output, Urine 0 Patient 197 lb 185 lb Weight Weight Bed scale Reported by Patient Measurement Method Physical Exam: Well-developed, well-nourished middle-aged male in no acute distress with nasal oxygen in place. Vital signs: See above. HEENT: Normocephalic, atraumatic, EOMI, slightly dry mucous membranes. Neck: No JVD, no bruits. Lungs: Bibasilar crackles. Heart: S1, S2 with no murmur, gallop, or rub appreciated. PMI fifth ICS at [facility]. Abdomen: Soft, nontender, positive bowel sounds. Extremities: No edema. Diagnostic Data EKG Results 01/30/2018 1. Sinus tachycardia, diffuse low voltage, consider old inferior wall myocardial infarction, abnormal precordial R-wave progression leads V1, V2, with nondiagnostic right precordial minor ST segment elevation. 2. Faster rate when compared to previous tracing from 01/29/2018. CXR Results 01/29/2018 1. Atelectasis or small infiltrate at the left lung base. Increased density at the right lung apex, question related to superimposition of bony structures. 2. Follow-up chest x-ray recommended. Other Results Chest CTA 01/29/2018 1. Study is negative for large emboli. There is however single tiny 2 mm filling defect in a small branch of LEFT pulmonary artery and incomplete opacification of the distal subsegmental branches to the RIGHT lower lobe, this could be artifactual, cannot entirely rule out the possibility of small or old emboli. 2. There is pulmonary vascular congestion. There is mild interstitial edema, interlobular septal fluid suggesting congestion. There is pericardial effusion. 3. Scattered patchy pulmonary opacities, concerning for superimposed infiltrates.Bilateral apical pleural-based opacities the largest in the RIGHT upper lobe measure up to 2.6 x 1.7 cm, this might be consolidation infection. Short-term follow-up would be recommended to rule out underlying neoplasm. Consider repeat chest CT in 2 months. 4. Fullness of the lymph nodes in the mediastinum and RIGHT hilum might be reactive. Assessment/Plan Assessment/Plan [id number] w/ hx of HTN, HLD, pre-DM, & HEIDI on BiPAP, who presented to the ED on 01/29/2018 w/ c/o feverish feelings, chills, occasional minimally productive cough, joint pain, FERNÁNDEZ, CP exacerbated by cough, & SOB that began on , , shortly after his return from [facility] where he visited his mother who had pneumonia, who additionally is febrile, has an elevated WBC count with left shift, a modestly elevated troponin I, an ECG with diffuse low voltage & nondiagnostic right precordial ST elevation, chest CTA with evidence of pericardial effusion, etc. The concern is that the patient may have an infectious pericardial effusion secondary to myocardial inflammation. Recommendations: * Continue on telemetry, follow-up ECGs, follow-up troponins. * Echocardiogram ANITA (called echo lab to notify) to exclude cardiac tamponade, given CTA evidence of pericardial effusion, diffuse low voltage on ECG, as well as, to assess for wall motion abnormalities, degree of LVH, overall LV function, RV function, estimated PA systolic pressure, etc. * Would obtain old ECGs from his primary care physician's office. * Check free T4, TSH, glycosylated hemoglobin A1c, magnesium, etc. * Would avoid heparin at this time to prevent hemorrhagic pericardial effusion. * Consider VQ scan to follow-up on CTA findings of possible small pulmonary emboli. * DVT prophylaxis. Consult Acknowledgment - Thank you for your consult request.
--- NOTE | 2018-01-30 14:23 | Cons- Infect Disease ---
General Information and HPI Consulting Request Date of Consult: 01/30/18 Requested By: Tamara Sharp MD Reason for Consult: Rule out pneumonia Source of Information: patient History of Present Illness: This is a 47-year-old man, originally from [facility], in the for 6 years, status post a recent 3 week trip to [facility], from which he returned 9 days prior to admission, admitted on January 29 with a four-day history of left sided chest pain, worse with movement and inspiration, increasing shortness of breath, headaches, body aches, fevers and chills, with no significant cough. On admission he was afebrile. Laboratory data revealed a white blood cell count of 13,000, BUN/creatinine 21 and 1.5, AST/ALT 47 and 86, troponin 1.56. Urinalysis greater than 75 RBCs/5-10 WBCs. Chest x-ray revealed atelectasis or small infiltrate at the left lung base and increased density of the right lung apex. CTA of the chest was negative for large pulmonary emboli, but revealed pulmonary vascular congestion, with a pericardial effusion, and scattered patchy pulmonary opacities, the largest in the right upper lobe. He was begun on Vancomycin and Ceftazidime. He developed a temperature to 100.9 overnight but feels improved today with no further body aches. He was noted to have diffuse low voltage and nonspecific ST elevation on EKG and has been evaluated by Cardiology, who has ordered an echocardiogram. He reports no history of TB or TB exposure but does report a positive skin test 6 years prior to admission upon his arrival in the , for which he was treated with a medication for 1 month. Allergies/Medications Allergies: Coded Allergies: No Known Allergies (01/29/18) Home Med List: Azelastine/Fluticasone (Dymista Nasal [place]) 137 MCG-50 MCG/SPRAY SPRAY.PUMP 1 SPRAY NASB BID ALLERGIES (Reported) Levocetirizine Dihydrochloride (Xyzal) 5 MG TABLET 1 TAB PO DAILY ALLERGIES ( Reported) Lisinopril 5 MG TABLET 1 TAB PO DAILY HTN (Reported) Olopatadine HCl (Pazeo) 0.7 % DROPS 1 DROP OU DAILY ALLERGIES (Reported) Past History Travel History Traveled to [place] past 21 day No Medical History Blood Transfusion Hx: No Neurological: NONE EENT: NONE Cardiovascular: hypertension, hyperlipidemia Respiratory: NONE Gastrointestinal: NONE Hepatic: NONE Renal: NONE Musculoskeletal: NONE Psychiatric: NONE Endocrine: PRE DIABETIC Blood Disorders: NONE Cancer(s): NONE SAMPLE PULLER/Reproductive: Varicocele History of MRSA: No History of VRE: No History of CDIFF: No Isolation History: Airborne Surgical History Surgical History: Varicocele s/p Repair. Psychosocial History Where Do You Live? Home Smoking Status: Never Smoked ETOH Use: occasional use Illicit Drug Use: denies illicit drug use Review of Systems Review of Systems All Other Systems: Reviewed and Negative Exam & Diagnostic Data Last 24 Hrs of Vital Signs/I&O Vital Signs Date Time Temp Pulse Resp B/P B/P Pulse O2 O2 Flow FiO2 Mean Ox Delivery Rate 01/30 0515 100.9 01/30 0438 100.9 121 24 168/72 92 Nasal 2.0L Cannula 01/30 0000 Nasal 2.0L Cannula 01/29 2304 99.9 01/29 2146 99.9 127 20 140/70 98 Nasal 4.0L Cannula 01/30 2144 99 Nasal 2.0L Cannula 01/29 210 98 Nasal 2.0L Cannula 01/29 2005 98.6 75 24 101/64 94 Room Air 01/29 1908 98.7 120 24 98/64 95 Room Air 01/29 1758 98.7 01/29 1722 112 18 120/68 96 Room Air 01/29 1425 108 18 102/62 93 01/29 1422 Room Air Intake & Output 01/30 1600 01/30 0800 01/30 0000 Intake Total 320 75 Output Total Balance 320 75 Intake, IV 100 Intake, Oral 220 75 Patient 197 lb Weight Weight Bed scale Measurement Method Physical Exam Other Physical Findings: He is awake and alert in no acute distress. T-max 100.9. Skin reveals no rash. HEENT exam is negative. Neck is supple with no adenopathy. Lungs scattered and bibasilar crackles. Heart regular rhythm with no murmur. Abdomen is soft, tender in the epigastrium, with positive bowel sounds. Back no CVA tenderness. Extremities no cyanosis, clubbing or edema. Neuro is without focality. Last 24 Hours of Lab Results: Laboratory Tests 01/30 01/30 0923 0500 Chemistry Sodium (137 - 145 mmol/L) 137 Potassium (3.5 - 5.1 mmol/L) 4.1 Chloride (98 - 107 mmol/L) 102 Carbon Dioxide (22 - 30 mmol/L) 23 Anion Gap (5 - 16) 12 BUN (9 - 20 mg/dL) 16 Creatinine (0.7 - 1.2 mg/dL) 1.0 Estimated GFR (>60 ml/min) > 60 BUN/Creatinine Ratio (7 - 25 %) 16.0 Total Bilirubin (0.2 - 1.3 mg/dL) 0.7 Direct Bilirubin (< 0.4 mg/dL) 0.3 AST (17 - 59 U/L) 36 ALT (21 - 72 U/L) 76 H Alkaline Phosphatase (< 127 U/L) 90 Total Protein (6.3 - 8.2 g/dL) 5.4 L Albumin (3.5 - 5.0 g/dL) 3.1 L Hematology CBC w Diff MAN DIFF ORDERED WBC (4.8 - 10.8 /CUMM) 12.5 H RBC (4.70 - 6.10 /CUMM) 3.75 L Hgb (14.0 - 18.0 G/DL) 12.0 L Hct (42 - 52 %) 35.3 L MCV (80.0 - 94.0 FL) 94.0 MCH (27.0 - 31.0 PG) 32.0 H MCHC (33.0 - 37.0 G/DL) 34.1 RDW (11.5 - 14.5 %) 13.6 Plt Count (130 - 400 /CUMM) 243 MPV (7.4 - 10.4 FL) 7.6 Gran % (42.2 - 75.2 %) 86.1 H Lymphocytes % (20.5 - 51.1 %) 7.0 L Monocytes % (1.7 - 9.3 %) 2.4 Eosinophils % (0 - 5 %) 4.4 Basophils % (0.0 - 2.0 %) 0.1 Absolute Granulocytes (1.4 - 6.5 /CUMM) 10.8 H Segmented Neutrophils (42.2 - 75.2 %) 70 Band Neutrophils (0.0 - 5.0 %) 14 H Absolute Lymphocytes (1.2 - 3.4 /CUMM) 0.9 L Lymphocytes (20.5 - 51.1 %) 8 L Monocytes (1.7 - 9.3 %) 4 Absolute Monocytes (0.10 - 0.60 /CUMM) 0.3 Eosinophils (0 - 5.0 %) 4 Absolute Eosinophils (0.0 - 0.7 /CUMM) 0.6 Absolute Basophils (0.0 - 0.2 /CUMM) 0 Platelet Estimate (ADEQUATE) ADEQUATE Polychromasia 1+ Basophilic Stippling 1+ Anisocytosis 1+ Urines Urinalysis LIGHT H Urine Color (YEL,AMB,STR) YEL Urine Clarity (CLEAR) HAZY H Urine pH (5.0 - 8.0) 6.0 Ur Specific [place] (1.001 - 1.035) 1.025 Urine Protein (NEG,<30 MG/DL) 100 H Urine Ketones (NEG) 40 H Urine Nitrite (NEG) NEG Urine Bilirubin (NEG) POS@ICTO H Urine Urobilinogen (0.1 - 1.0 EU/dl) 1.0 Ur Leukocyte Esterase (NEG) NEG Ur Microscopic SEDIMENT EXAMINED Urine RBC (0 - 5 /HPF) 50-75 H Urine WBC (0 - 2 /HPF) 5-10 H Ur Epithelial Cells (NONE,FEW) FEW Urine Bacteria (NEG/NONE) MOD H Granular Casts (NONE /LPF) FEW H Urine Hemoglobin (NEG) LARGE H Urine Glucose (N MG/DL) NEG 01/305 2004 1999 175 Chemistry Troponin I (<0.11 ng/ml) 1.50 *H 1.47 *H Coagulation PT Cancelled INR Cancelled Serology Lyme Disease Antibody (RATIO) 0.15 01/29 01/29 1750 1421 Chemistry Lactic Acid (0.7 - 2.1 mmol/L) 1.3 Cancelled Serology Hepatitis A IgM Ab (NONREACTIVE) NONREACTIVE Hep Bs Antigen (NONREACTIVE) NONREACTIVE Hep B Core IgM Ab Conf (NONREACTIVE) NONREACTIVE Hepatitis C Antibody (NONREACTIVE) NONREACTIVE HIV 1&2 Ab Western Blot (NONREACTIVE) NONREACTIVE 01/29 1410 Urines Urinalysis MOD H Urine Color (YEL,AMB,STR) SOTO Urine Clarity (CLEAR) HAZY H Urine pH (5.0 - 8.0) 5.5 Ur Specific [place] (1.001 - 1.035) >= 1.030 Urine Protein (NEG,<30 MG/DL) 100 H Urine Ketones (NEG) TRACE H Urine Nitrite (NEG) NEG Urine Bilirubin (NEG) NEG@ICTO Urine Urobilinogen (0.1 - 1.0 EU/dl) 4.0 H Ur Leukocyte Esterase (NEG) NEG Ur Microscopic SEDIMENT EXAMINED Urine RBC (0 - 5 /HPF) >75 H Urine WBC (0 - 2 /HPF) 5-10 H Ur Epithelial Cells (NONE,FEW) FEW Urine Bacteria (NEG/NONE) MANY H Hyaline Casts (0/LPF) RARE H Granular Casts (NONE /LPF) FEW H Urine Mucus (FEW,NONE) FEW Urine Hemoglobin (NEG) LARGE H Urine Glucose (N MG/DL) NEG Last 24 Hours of Jeffrey Results: Blood cultures 2 January 29 negative Diagnostic Data Recent Imaging Findings: Chest x-ray revealed atelectasis or small infiltrate at the left lung base and increased density at the right lung apex. CTA of the chest was negative for large pulmonary emboli, but revealed pulmonary vascular congestion, with a pericardial effusion, and scattered patchy pulmonary opacities, the largest in the right upper lobe. Assessment/Plan Assessment/Plan Impression: This is a 47-year-old man, originally from [facility], in the for 6 years, status post a recent 3 week trip to [facility], from which he returned 9 days prior to admission, admitted on January 29 with a four-day history of left sided chest pain, worse with movement and inspiration, increasing shortness of breath, headaches, body aches, fevers and chills, with no significant cough, found initially to be afebrile with a mild leukocytosis, an elevated troponin, microscopic hematuria, low voltage EKG and a CT of the chest revealing a pericardial effusion and scattered patchy pulmonary opacities. The etiology of his complaints is unclear. He does have patchy densities on chest x-ray, which may be suggestive of pneumonia, possibly atypical, with a minimal cough. The pericardial effusion noted on CT scan has raised concern for pericarditis, particularly with a low voltage EKG and elevated troponin, and he is being evaluated for tamponade. TB has been considered as a possible diagnosis, though the acuity of his symptoms makes this less likely, particularly in the absence of any significant cough. A QuantiFERON has been ordered but, if positive, will not distinguish between latent and active infection. Of note he does report a positive skin test and treatment with 1 month of medication at the time of his arrival in the [place], though further details regarding this are not available. His fevers and body aches might suggest a viral process, such as Dengue fever or Zika, given his recent travel to [facility], though he has no rash, leukopenia or thrombocytopenia and he reports resolution of his initial arthralgias. The microscopic hematuria is of unclear etiology. Suggestion: 1. Discontinue Airborne precautions 2. Attempt to obtain more details regarding his treatment for a possible positive skin test for TB 3. Attempt to obtain sputum for culture and, if possible, AFB 3 4. Follow-up QuantiFERON 5. Await echocardiogram 6. Urine for strep pneumo antigen and Legionella antigen 7. Discontinue Vancomycin and Ceftazidime 8. Begin Ceftriaxone 1 g IV every 24 hours and Azithromycin 500 mg IV every 24 hours pending above Consult Acknowledgment - Thank you for your consult request.
[2018-01-30 14:34] VITALS: BP 102/68
--- NOTE | 2018-01-30 16:51 | ULTRASOUND REPORT ---
EXAMINATION: US ABDOMEN LIMITED CLINICAL INFORMATION: 47-year-old male with fevers, chills and cough. Question viral hepatitis.. COMPARISON: None TECHNIQUE: Real-time imaging of the right upper quadrant abdominal viscera. FINDINGS: PANCREAS: Visualized portions of pancreas are normal in appearance. LIVER: Normal. The liver demonstrates normal size, contour and echogenicity. No focal lesion or intrahepatic biliary duct dilatation. GALLBLADDER: The gallbladder is physiologically distended without evidence of gallstones. There is no gallbladder wall thickening, however, there does appear to be some fluid within the gallbladder wall which directly abuts the surface of the liver. Sonographic Hong's sign is negative. COMMON BILE DUCT: Normal in caliber measuring 0.5 cm in diameter. RIGHT KIDNEY: Normal. No hydronephrosis. No renal calculi or focal parenchymal lesions. The kidney measures 12.8 cm in maximum dimension. FREE FLUID: None. IMPRESSION: Physiologically distended gallbladder without gallstones. However, there does appear to be some fluid within the gallbladder wall which directly abuts the surface of the liver. This is a nonspecific finding but may potentially be a reactive finding secondary to adjacent liver disease. The liver appears grossly unremarkable by sonographic evaluation. Further evaluation of the liver and gallbladder can be obtained through MRI imaging or CT, preferably without and with IV contrast if able.
--- NOTE | 2018-01-30 19:35 | ECHOCARDIOGRAM REPORT ---
STACY EVERETT Age: 47 : 1970 Gender: M Exam Date: 01/30/2018 13:48 Exam Location: 1 [address] Ht (in): 67 Wt (lb): 197 BSA: 2.08 BP: 168 / 72 Ordering Physician: Fay Perrin MD Referring Physician: Andrew Morales MD Technologist: Evelyn Palacios [facility] Room Number: 183 Indications: Chest pain Rhythm: Sinus Technical Quality: Fair FINDINGS Left Ventricle Normal size left ventricle. Moderate concentric left ventricular hypertrophy. Mildly reduced global left ventricular systolic function. Mildly abnormal left ventricular ejection fraction estimated at 50%. "pseudonormal" filling pattern of the left ventricle for age (stage 2 diastolic dysfunction). Right Ventricle Normal right ventricular size and function. Right Atrium Normal right atrial size. Left Atrium Normal left atrial size. Mitral Valve Mildly thickened mitral valve. Mild mitral regurgitation. Aortic Valve Structurally normal trileaflet aortic valve. No aortic valve stenosis or regurgitation. Tricuspid Valve Structurally normal tricuspid valve. Trace tricuspid regurgitation. No evidence of pulmonary hypertension. Right ventricular systolic pressure estimated to be within the normal range at 31 mmHg. Pulmonic Valve Pulmonic valve not well visualized, grossly normal. No pulmonic regurgitation. Pericardium Small pericardial effusion. Great Vessels Normal size aortic root. CONCLUSIONS Normal size left ventricle. Moderate concentric left ventricular hypertrophy. Mildly reduced global left ventricular systolic function. Mildly abnormal left ventricular ejection fraction estimated at 50%. "pseudonormal" filling pattern of the left ventricle for age (stage 2 diastolic dysfunction). Normal right ventricular size and function. Normal atrial size. Mild mitral regurgitation. Trace tricuspid regurgitation. No evidence of pulmonary hypertension. Small pericardial effusion. Andrew Morales M.D. (Electronically Signed) Final Date: 30 January 2018 19:32 MEASUREMENTS (Male / Female) Normal Values 2D ECHO LV Diastolic Diameter PLAX 4.6 cm 4.2 - 5.9 / 3.9 - 5.3 cm LV Systolic Diameter PLAX 3.4 cm 2.1 - 4.0 cm LV Fractional Shortening PLAX 26.1 % 25 - 46 % LV Ejection Fraction 2D Teich 51.3 % IVS Diastolic Thickness 1.5 cm LVPW Diastolic Thickness 1.4 cm LV Relative Wall Thickness 0.6 LVOT Diameter 2.2 cm Aortic Root Diameter 3.4 cm LA Systolic Diameter LX 3.7 cm 3.0 - 4.0 / 2.7 - 3.8 cm LA Volume 38.0 cm 18 - 58 / 22 - 52 cm Ascending Aorta Diameter 3.2 cm DOPPLER AV Peak Velocity 132.0 cm/s AV Peak Gradient 7.0 mmHg AV Mean Velocity 93.7 cm/s AV Mean Gradient 4.0 mmHg AV Velocity Time Integral 24.7 cm LVOT Peak Velocity 113.0 cm/s LVOT Peak Gradient 5.1 mmHg LVOT Mean Velocity 72.2 cm/s LVOT Mean Gradient 3.0 mmHg LVOT Velocity Time Integral 19.3 cm LVOT Stroke Volume 73.4 cm AV Area Cont Eq vti 3.0 cm AV Area Cont Eq pk 3.3 cm MV Peak Velocity 94.2 cm/s MV Peak Gradient 3.5 mmHg MV Mean Velocity 65.3 cm/s MV Mean Gradient 2.0 mmHg Mitral E Point Velocity 88.8 cm/s Mitral A Point Velocity 93.3 cm/s Mitral E to A Ratio 1.0 MV PHT Velocity 85.1 cm/s MV Deceleration [place] 375.0 cm/s MV Pressure Half Time 68.1 ms MV Area PHT 3.2 cm MV Deceleration Time 123.0 ms TR Peak Velocity 230.0 cm/s TR Peak Gradient 21.2 mmHg Right Atrial Pressure 10.0 mmHg Pulmonary Artery Systolic Pressure 31.2 mmHg Right Ventricular Systolic Pressure 31.2 mmHg PV Peak Velocity 105.0 cm/s PV Peak Gradient 4.4 mmHg PV Mean Velocity 64.4 cm/s PV Mean Gradient 2.0 mmHg PV Velocity Time Integral 17.7 cm LV E' Lateral Velocity 9.8 cm/s Mitral E to LV E' Lateral Ratio 9.0 LV E' Septal Velocity 6.5 cm/s Mitral E to LV E' Septal Ratio 13.6
[2018-01-30 21:54] VITALS: BP 148/68
[2018-01-31 06:13] VITALS: BP 122/70
--- NOTE | 2018-01-31 07:26 | PN- Housestaff ---
Main Servin 01/31/18 0726: Subjective Follow-up For: Fever Pericardial effusion Elevated troponin Possible pneumonia Tele-Events Since Last Visit: Patient in normal sinus rhythm from rate 95-98, and sinus tachycardia from rate 101-110 overnight Subjective: Patient seen resting comfortably in the bed. His chest pain has resolved, but he still has the abdominal pain that is worse after meals and sharp, with increased pain upon leaning forward. He reports that overnight he has not experienced fever or chills, but has felt lethargic and endorses orthopnea, but is breathing comfortably while sitting up in the bed. The patient's headache has resolved, but he now reports sore throat with pain upon swallowing. Review of Systems Constitutional: Denies: chills, fever, weakness. EENTM: Reports: throat pain. Cardiovascular: Reports: orthopena. Denies: chest pain, palpitations, peripheral edema, syncope. Respiratory: Reports: orthopnea. Denies: short of breath. Gastrointestinal: Reports: abdominal pain. Denies: nausea, vomiting. Objective Last 24 Hrs of Vital Signs/I&O Vital Signs Date Time Temp Pulse Resp B/P B/P Pulse O2 O2 Flow FiO2 Mean Ox Delivery Rate 01/31 0613 99.5 108 20 122/70 96 Nasal Cannula 01/31 0000 Nasal 4.0L Cannula 01/30 2154 100.4 124 22 148/68 93 Room Air 01/30 2130 100.4 01/30 1600 Nasal 4.0L Cannula 01/30 1434 99.6 119 24 102/68 98 Nasal Cannula 01/30 0800 95 Nasal 4.0L Cannula Intake & Output 01/31 0800 01/31 0000 01/30 1600 Intake Total 900 600 Output Total Balance 900 600 Intake, IV 500 300 Intake, Oral 400 300 Physical Exam General Appearance: Alert, Oriented X3, Cooperative, No Acute Distress HEENT: Atraumatic, PERRLA, EOMI, pharyngeal exudate with swollen adenoids, non- erythematous Neck: No LAD Lymphatic: Cervical nl Cardiovascular: Regular Rate, Normal S1, Normal S2, No Murmurs Lungs: Clear to Auscultation Abdomen: Normal Bowel Sounds, Soft, Tender in the upper abdominal quadrants Neurological: Normal Gait, Normal Speech Current Medications: Current Medications Sig/Elvira Start time Last Medication Dose Route Stop Time Status Admin Acetaminophen 1,000 MG ONCE ONE 01/30 2115 DC 01/30 N/A 1 UNIT IV 01/30 2129 2130 Acetaminophen 650 MG Q4P PRN 01/30 0830 AC 01/30 PO 0859 Aspirin 81 MG DAILY 01/30 1134 AC 01/30 PO 1709 Atorvastatin Calcium 40 MG 1700 01/30 1700 AC 01/30 PO 1709 Azithromycin 500 MG Q24H 01/30 1430 AC 01/30 Sodium Chloride 250 ML IV 1711 Ceftazidime 1,000 MG IQ8 01/30 0000 DC 01/30 IV 0859 Ceftriaxone Sodium 1,000 MG Q24H 01/30 1430 AC 01/30 IV 1708 Heparin Sodium 25,000 UNIT Q24H 01/30 1145 DC 01/30 (Porcine) IV 1258 Sodium Chloride 500 ML Ondansetron HCl 4 MG ONCE ONE 01/30 1900 DC 01/30 IV 01/30 1901 1999 Pantoprazole Sodium 40 MG BID 01/30 2100 AC IV Pantoprazole Sodium 40 MG DAILY 01/30 1847 CAN IV Pantoprazole Sodium 40 MG DAILY 01/30 1445 DC 01/30 IV 1708 Polyethylene Glycol 17 GM DAILY 01/30 1945 AC PO Polyethylene Glycol 17 GM ONCE ONE 01/30 1900 DC 01/30 PO 01/30 1901 2010 Senna 187 MG AT BEDTIME 01/30 2100 AC 01/30 PO 2010 Sodium Chloride 500 ML BOLUS ONE 01/30 1900 DC 01/30 IV 01/30 1959 2010 Sodium Chloride 500 ML BOLUS ONE 01/30 1315 DC IV 01/30 1414 Vancomycin HCl 1,250 MG 1200 01/30 1200 DC 01/30 Sodium Chloride 250 ML IV 1258 Last 24 Hrs of Lab/Jeffrey Results Last 24 Hrs of Labs/Mics: Laboratory Tests 01/31/18 0640: Sodium Pending, Potassium Pending, Chloride Pending, Carbon Dioxide Pending, Anion Gap Pending, BUN Pending, Creatinine Pending, BUN/Creatinine Ratio Pending , CBC w Diff Pending, WBC Pending, RBC Pending, Hgb Pending, Hct Pending, MCV Pending, MCH Pending, MCHC Pending, RDW Pending, Plt Count Pending, MPV Pending 01/30/18 1931: Lactic Acid Cancelled 01/30/18 1520: Troponin I 0.64 *H, TB Test (QFT) Mitogen Pending, TB Test Mitogen - Nil Pending , TB Test Antigen - Nil Pending, TB Test (QFT) Interp Pending 01/30/18 1208: Lactic Acid 1.1 01/30/18 0923: Anion Gap 12, Estimated GFR > 60, BUN/Creatinine Ratio 16.0, Total Bilirubin 0.7 , Direct Bilirubin 0.3, AST 36, ALT 76 H, Alkaline Phosphatase 90, Total Protein 5.4 L, Albumin 3.1 L, CBC w Diff MAN DIFF ORDERED, RBC 3.75 L, MCV 94.0, MCH 32.0 H, MCHC 34.1, RDW 13.6, MPV 7.6, Gran % 86.1 H, Lymphocytes % 7.0 L, Monocytes % 2.4, Eosinophils % 4.4, Basophils % 0.1, Absolute Granulocytes 10.8 H, Segmented Neutrophils 70, Band Neutrophils 14 H, Absolute Lymphocytes 0.9 L, Lymphocytes 8 L, Monocytes 4, Absolute Monocytes 0.3, Eosinophils 4, Absolute Eosinophils 0.6, Absolute Basophils 0, Platelet Estimate ADEQUATE, Polychromasia 1+, Basophilic Stippling 1+, Anisocytosis 1+ Microbiology 01/30 142 URINE ROUT: Legionella Antigen - COMP 01/30 1429 URINE ROUT: Streptococcus pneumoniae Antigen (M - COMP 01/30 815 LOWER RESP: Respiratory Culture - COLB 01/30 815 LOWER RESP: Gram Stain - COLB Assessment/Plan Assessment: 47 year old male with PMH of HTN and HEIDI with recent travel to [facility], presented to the ED with fever, chills, cough and chest pain, found to have elevated troponins with low-voltage EKG. Today his chest pain has resolved, and his troponins from yesterday drended downward, with a peak of 1.56 at admission. Lactic acid last night was WNL at 1.1. Today he still complains of abdominal pain and now a sore throat. He has been tachycardic throughout the day , but denies shortness of breath on 2L nasal cannula. He does endorse orthopnea, and says he is quite comfortable sitting upright, but grows dyspneic upon reclining. Upon inquiring about his PCP, the patient reports that Bruno Beltran is his primary, but he has not had an EKG done in the past. Legionella and strep pneumo urinary antigens negative. Problems: 1. Elevated troponins 2. Fever 3. Pericardial effusion Plan: * Follow-up QuantiFeron * Rapid strep test (does not meet CENTOR criteria), but f/u throat culture * Continue ceftriaxone and azithromycin Full Code Mechanical DVT prophylaxis Regular Diet No new labs tomorrow Problem List: 1. Elevated troponin 2. Pericardial effusion 3. Fever 4. Pneumonia Pain Ratin Pain Location: abdomen Pain Goal: Pain 4 or less Pain Plan: per pathway Tomorrow's Labs & Rationales: None, WBC count falling and WNL today Tamara Sharp MD 01/31/18 1145: Attending MD Review Statement Attending Statement Attending MD Statement: examined this patient, discuss w/resident/PA/MATE RELIEF, agreed w/resident/PA/MATE RELIEF, reviewed EMR data (avail), discussed with nursing, discussed with case mgmt, amended to note Attending Assessment/Plan: Patient seen and examined. Resting comfortably and not in acute distress. No issues overnight on telemetry monitoring. He complained of chest pain on and off yesterday. Today he reports that the chest pain has resolved however he does complain of abdominal discomfort. He reports that the discomfort is located more in the epigastric region also diffusely. Denies nausea vomiting. Denies any diarrhea or constipation. He also reports orthopnea stating he short of breath when laying down. Reports feeling better when he is upright. Denies similar respiratory complaints in the past. Blood pressure was borderline yesterday but has improved. Low-grade fever of 100.4 earlier today. Tachycardic with heart rate in the 100s-120s. On examination he does not appear to be in any respiratory distress. Maintaining saturation on room air. No jugular venous distention. Heart sounds are regular with no audible murmur. Lungs are clear to auscultation bilaterally. Abdomen is obese, nondistended, soft with tenderness in the epigastric region. No rebound or guarding. Bowel sounds are normal. No peripheral edema. Problems: 1. Myocardial infarction 2. Pericardial effusion 3. Pulmonary vascular congestion 4. Fever; bilateral, Apical opacities the largest in the right upper lobe and recent travel to [facility] raise concern for tuberculosis. Plan: -He appears stable from a cardiac standpoint. Denies any further chest pain. Troponins are trending downwards. No wall motion abnormality noted on echocardiogram his EF is mildly reduced and he does have evidence of stage II diastolic dysfunction. -Continue antiplatelet therapy with aspirin. Continue statin therapy. Beta- alex therapy was on hold due to his low blood pressure. Follow-up with the cardiology service regarding admission of this regimen. -Would recommend diuresis with Lasix 20 mg orally daily and monitoring for improvement of his orthopnea. -Continue antibiotic therapy. Follow sputum cultures. Follow Gold QuantiFERON. -CT angiogram did make mention of small possible filling defect. VQ scan has been ordered to rule out pulmonary embolism. Recommend obtaining lower extremity Dopplers as well.
[2018-01-31 07:46] LABS: ABSOLUTE BASOPHIL COUNT 0 /CUMM (0.0-0.2); ABSOLUTE GRANULOCYTE CT 8.4 /CUMM (1.4-6.5); ABSOLUTE LYMPH COUNT 0.8 /CUMM (1.2-3.4); ABSOLUTE MONOCYTE COUNT 0.3 /CUMM (0.10-0.60); BASOPHIL % 0 % (0.0-2.0); EOSINOPHIL % 9.7 % (0-5); GRANULOCYTE % 79.8 % (42.2-75.2); HEMATOCRIT 34.2 % (42-52); MEAN CORPUSCULAR HGB 31.9 PG (27.0-31.0); MEAN CORPUSCULAR VOLUME 93.8 FL (80.0-94.0); MEAN PLATELET VOLUME 7.8 FL (7.4-10.4); PLATELET COUNT 289 /CUMM (130-400); RBC DISTRIBUTION WIDTH 13.7 % (11.5-14.5); RED BLOOD CELL CT 3.65 /CUMM (4.70-6.10); WHITE BLOOD CELL COUNT 10.5 /CUMM (4.8-10.8)
--- NOTE | 2018-01-31 11:34 | PN- Infect Dx ---
Subjective Subjective: T-max 100.4. He feels improved with decreased left-sided chest pain. He notes shortness of breath when laying down, with minimal cough. He also complains of a sore throat and epigastric discomfort, with no nausea, vomiting or diarrhea. Objective Last 24 Hrs of Vital Signs/I&O Vital Signs Date Time Temp Pulse Resp B/P B/P Pulse O2 O2 Flow FiO2 Mean Ox Delivery Rate 01/31 0613 99.5 108 20 122/70 96 Nasal Cannula 01/31 0000 Nasal 4.0L Cannula 01/30 2154 100.4 124 22 148/68 93 Room Air 01/30 2130 100.4 01/30 1600 Nasal 4.0L Cannula 01/30 1434 99.6 119 24 102/68 98 Nasal Cannula Intake & Output 01/31 1600 01/31 0800 01/31 0000 Intake Total 900 Output Total Balance 900 Intake, IV 500 Intake, Oral 400 Physical Exam Other Physical Findings: He appears comfortable in no acute distress Lungs bibasilar crackles Heart regular rhythm with no murmur Abdomen is soft, tender on palpation diffusely, mostly in the epigastrium and right upper quadrant, with no guarding or rebound, positive bowel sounds Extremities trace edema both lower extremities Results Last 24 Hours of Lab Results: Laboratory Tests 01/31 01/30 01/30 0640 1931 1520 Chemistry Sodium (137 - 145 mmol/L) 140 Potassium (3.5 - 5.1 mmol/L) 4.4 Chloride (98 - 107 mmol/L) 103 Carbon Dioxide (22 - 30 mmol/L) 25 Anion Gap (5 - 16) 12 BUN (9 - 20 mg/dL) 13 Creatinine (0.7 - 1.2 mg/dL) 0.8 Estimated GFR (>60 ml/min) > 60 BUN/Creatinine Ratio (7 - 25 %) 16.3 Lactic Acid Cancelled Troponin I (<0.11 ng/ml) 0.64 *H Hematology CBC w Diff NO MAN DIFF REQ WBC (4.8 - 10.8 /CUMM) 10.5 RBC (4.70 - 6.10 /CUMM) 3.65 L Hgb (14.0 - 18.0 G/DL) 11.6 L Hct (42 - 52 %) 34.2 L MCV (80.0 - 94.0 FL) 93.8 MCH (27.0 - 31.0 PG) 31.9 H MCHC (33.0 - 37.0 G/DL) 34.0 RDW (11.5 - 14.5 %) 13.7 Plt Count (130 - 400 /CUMM) 289 MPV (7.4 - 10.4 FL) 7.8 Gran % (42.2 - 75.2 %) 79.8 H Lymphocytes % (20.5 - 51.1 %) 7.4 L Monocytes % (1.7 - 9.3 %) 3.1 Eosinophils % (0 - 5 %) 9.7 H Basophils % (0.0 - 2.0 %) 0 Absolute Granulocytes (1.4 - 6.5 /CUMM) 8.4 H Absolute Lymphocytes (1.2 - 3.4 /CUMM) 0.8 L Absolute Monocytes (0.10 - 0.60 /CUMM) 0.3 Absolute Eosinophils (0.0 - 0.7 /CUMM) 1.0 Absolute Basophils (0.0 - 0.2 /CUMM) 0 Serology TB Test (QFT) Mitogen Pending TB Test Mitogen - Nil Pending TB Test Antigen - Nil Pending TB Test (QFT) Interp Pending 01/30 1208 Chemistry Lactic Acid (0.7 - 2.1 mmol/L) 1.1 Last 24 Hours of Jeffrey Results: Blood cultures January 29 negative Urine strep pneumo antigen and Legionella antigen January 30 negative Recent Imaging Studies: Right upper quadrant ultrasound January 30 reveals a physiologically distended gallbladder without gallstones, but with some fluid within the gallbladder wall, felt to be nonspecific and possibly secondary to adjacent liver disease Echocardiogram January 30 small pericardial effusion, with a mildly abnormal LV ejection fraction estimated at 50% and with stage II diastolic dysfunction Assessment/Plan ID Impression: Stable, with overall improvement in his status, with decreased left-sided chest pain, temperatures lower grade and white blood cell count decreasing, on Ceftriaxone and Azithromycin, Day 2 of treatment for possible atypical pneumonia. He has multiple complaints, now with throat pain and continued abdominal discomfort, suggesting a possible viral process. His echocardiogram only revealed a small pericardial effusion, with no concern for tamponade. His physical exam and recent CT of the chest suggests some element of fluid overload , not unexpected given his echocardiogram results. Suggestion: 1. Would discuss need for diuresis with Cardiology 2. Obtain more details if possible regarding his previous treatment for a positive PPD 3. Follow-up QuantiFERON 4. Consider CT of the abdomen and pelvis if his abdominal symptoms persist 5. Continue Ceftriaxone and Azithromycin
--- NOTE | 2018-01-31 12:20 | ULTRASOUND REPORT ---
EXAMINATION: US TRIPLEX OF LOWER EXTREMITIES, BILATERAL CLINICAL INFORMATION: Pulmonary emboli with cough fever and hypotension COMPARISON: None TECHNIQUE: Color-flow triplex imaging with spectral analysis and compression Doppler were performed on the lower extremities. FINDINGS: Respiratory variation, normal compression and augmented flow are noted throughout the lower extremities. The visualized common femoral vein, superficial femoral vein, profunda femoral vein, popliteal vein and midcalf peroneal and posterior tibial venous segments show no evidence of deep venous thrombosis. There is no Draper's cyst. IMPRESSION: No evidence of deep venous thrombosis involving the bilateral lower extremities.
--- NOTE | 2018-01-31 13:06 | NUCLEAR MEDICINE REPORT ---
EXAMINATION: PULMONARY VENTILATION PERFUSION STUDY CLINICAL INFORMATION: Shortness of breath, cough, hypotension. COMPARISON: No previous lung scan or recent radiographs are available for comparison. CTA the chest dated 01/29/2018 is available for comparison. TECHNIQUE: Serial gamma scintillation camera images were obtained over the posterior chest during the single breath, equilibrium rebreathing and washout of 9.2 mCi Xe 133 gas. The patient then received 4.3 mCi Tc-99m MAA intravenously and a 6-view perfusion study was performed. FINDINGS: Ventilation images: On the single breath and equilibrium images there is homogeneous distribution of gas bilaterally. During the washout phase there is no abnormal retention. Perfusion images: No segmental perfusion defects are present. There is mild heterogeneity present bilaterally, but no focal anatomic appearing perfusion defects are present. The CTA of the chest dated 01/29/2018 showed an equivocal tiny filling defect in a small left pulmonary artery branch. IMPRESSION: Very low probability of pulmonary embolism.
[2018-01-31 14:18] VITALS: BP 110/70
--- NOTE | 2018-01-31 18:08 | PN- Cardiology ---
Subjective Subjective: Overall, feels improved today with decreased left-sided chest discomfort.. Breathing and chest discomfort worse when lying down. Sinus rhythm on telemetry. Objective Vital Signs and I&Os Vital Signs Date Time Temp Pulse Resp B/P B/P Pulse O2 O2 Flow FiO2 Mean Ox Delivery Rate 01/31 1600 Room Air 01/31 1418 99.9 122 18 110/70 94 Room Air 01/31 0613 99.5 108 20 122/70 96 Nasal Cannula 01/31 0000 Nasal 4.0L Cannula 01/30 2154 100.4 124 22 148/68 93 Room Air 01/30 2130 100.4 Intake & Output 01/31 1600 01/31 0800 01/31 0000 01/30 1600 01/30 0800 01/30 0000 Intake Total 860 900 600 320 75 Output Total Balance 860 900 600 320 75 Intake, IV 20 500 300 100 Intake, Oral 840 400 300 220 75 Number 1 Bowel Movements Patient 197 lb Weight Weight Bed scale Measurement Method Physical Exam: Well-developed, well-nourished middle-aged male in no acute distress with nasal oxygen in place. Vital signs: See above. HEENT: Normocephalic, atraumatic, EOMI, slightly dry mucous membranes. Neck: No JVD, no bruits. Lungs: Bibasilar crackles. Heart: S1, S2 with no murmur, gallop, or rub appreciated. PMI fifth ICS at MCL. Abdomen: Soft, nontender, positive bowel sounds. Extremities: No edema. Current Medications: Current Medications Sig/Elvira Start time Last Medication Dose Route Stop Time Status Admin Acetaminophen 1,000 MG ONCE ONE 01/30 2115 DC 01/30 N/A 1 UNIT IV 01/30 Acetaminophen 650 MG Q4P PRN 01/30 0830 AC 01/30 PO 0859 Aspirin 81 MG DAILY 01/30 1134 AC 01/31 PO 0925 Atorvastatin Calcium 40 MG 1700 01/30 1700 AC 01/31 PO 1645 Azithromycin 500 MG Q24H 01/31 1700 AC 01/31 Sodium Chloride 250 ML IV 1645 Azithromycin 500 MG Q24H 01/30 1430 DC 01/30 Sodium Chloride 250 ML IV 1711 Ceftriaxone Sodium 1,000 MG Q24H 01/30 1430 AC 01/31 IV 1509 Furosemide 20 MG DAILY 01/31 1501 AC 01/31 PO 1509 Lidocaine 1 PAT DAILY 01/31 1615 AC 01/31 TOP 1645 Ondansetron HCl 4 MG ONCE ONE 01/30 1900 DC 01/30 IV 01/30 Pantoprazole Sodium 40 MG BID 01/30 2100 AC 01/31 IV 0926 Pantoprazole Sodium 40 MG DAILY 01/30 1847 CAN IV Pantoprazole Sodium 40 MG DAILY 01/30 1445 DC 01/30 IV 1708 Polyethylene Glycol 17 GM DAILY 01/30 1945 AC PO Polyethylene Glycol 17 GM ONCE ONE 01/30 1900 DC 01/30 PO 01/30 Senna 187 MG AT BEDTIME 01/30 2100 AC 01/30 PO 2010 Sodium Chloride 500 ML BOLUS ONE 01/30 190 DC 01/30 IV 01/30 Results Last 48 Hrs of Labs/Mics: Laboratory Tests 01/31/18 0640: Anion Gap 12, Estimated GFR > 60, BUN/Creatinine Ratio 16.3, CBC w Diff NO MAN DIFF REQ, RBC 3.65 L, MCV 93.8, MCH 31.9 H, MCHC 34.0, RDW 13.7, MPV 7.8, Gran % 79.8 H, Lymphocytes % 7.4 L, Monocytes % 3.1, Eosinophils % 9.7 H, Basophils % 0, Absolute Granulocytes 8.4 H, Absolute Lymphocytes 0.8 L, Absolute Monocytes 0.3, Absolute Eosinophils 1.0, Absolute Basophils 0 01/30/18 1931: Lactic Acid Cancelled 01/30/18 1520: Troponin I 0.64 *H, TB Test (QFT) Mitogen Pending, TB Test Mitogen - Nil Pending , TB Test Antigen - Nil Pending, TB Test (QFT) Interp Pending 01/30/18 1208: Lactic Acid 1.1 01/30/18 0923: Anion Gap 12, Estimated GFR > 60, BUN/Creatinine Ratio 16.0, Total Bilirubin 0.7 , Direct Bilirubin 0.3, AST 36, ALT 76 H, Alkaline Phosphatase 90, Total Protein 5.4 L, Albumin 3.1 L, CBC w Diff MAN DIFF ORDERED, RBC 3.75 L, MCV 94.0, MCH 32.0 H, MCHC 34.1, RDW 13.6, MPV 7.6, Gran % 86.1 H, Lymphocytes % 7.0 L, Monocytes % 2.4, Eosinophils % 4.4, Basophils % 0.1, Absolute Granulocytes 10.8 H, Segmented Neutrophils 70, Band Neutrophils 14 H, Absolute Lymphocytes 0.9 L, Lymphocytes 8 L, Monocytes 4, Absolute Monocytes 0.3, Eosinophils 4, Absolute Eosinophils 0.6, Absolute Basophils 0, Platelet Estimate ADEQUATE, Polychromasia 1+, Basophilic Stippling 1+, Anisocytosis 1+ 01/30/18 0500: Urinalysis LIGHT H, Urine Color YEL, Urine Clarity HAZY H, Urine pH 6.0, Ur Specific [place] 1.025, Urine Protein 100 H, Urine Ketones 40 H, Urine Nitrite NEG, Urine Bilirubin POS@ICTO H, Urine Urobilinogen 1.0, Ur Leukocyte Esterase NEG, Ur Microscopic SEDIMENT EXAMINED, Urine RBC 50-75 H, Urine WBC 5-10 H, Ur Epithelial Cells FEW, Urine Bacteria MOD H, Granular Casts FEW H, Urine Hemoglobin LARGE H, Urine Glucose NEG 01/30/18 0415: Troponin I 1.50 *H 01/29/182004: Troponin I 1.47 *H 01/29/18 2000: PT Cancelled, INR Cancelled Microbiology 01/30 142 URINE ROUT: Legionella Antigen - COMP 01/30 1429 URINE ROUT: Streptococcus pneumoniae Antigen (M - COMP Recent Imaging Studies: VQ scan 01/30/2018: Very low probability of pulmonary embolism. Bilateral lower extremity ultrasound 01/30/2018; No evidence of deep venous thrombosis involving the bilateral lower extremities. Echocardiogram 01/30/2018: Normal size left ventricle. Moderate concentric left ventricular hypertrophy. Mildly reduced global left ventricular systolic function. Mildly abnormal left ventricular ejection fraction estimated at 50%. "pseudonormal" filling pattern of the left ventricle for age (stage diastolic dysfunction). Normal right ventricular size and function. Normal atrial size. Mild mitral regurgitation. Trace tricuspid regurgitation. No evidence of pulmonary hypertension. Small pericardial effusion. Assessment/Plan Assessment/Plan [id number] w/ hx of HTN, HLD, pre-DM, & HEIDI on BiPAP, who presented to the ED on 01/29/2018 w/ c/o feverish feelings, chills, occasional minimally productive cough, joint pain, FERNÁNDEZ, CP exacerbated by cough, & SOB that began on , , shortly after his return from [facility] where he visited his mother who had pneumonia, who additionally is febrile, has an elevated WBC count with left shift, a modestly elevated troponin I, an ECG with diffuse low voltage & nondiagnostic right precordial ST elevation, chest CTA with evidence of pericardial effusion, etc. Recommendations: * Continue on telemetry. * Follow-up on ID recommendations. * Continue DVT prophylaxis per Continue telemetry? Yes
--- NOTE | 2018-01-31 18:16 | PN- Cardiology ---
Objective Vital Signs and I&Os Vital Signs Date Time Temp Pulse Resp B/P B/P Pulse O2 O2 Flow FiO2 Mean Ox Delivery Rate 01/31 1600 Room Air 01/31 1418 99.9 122 18 110/70 94 Room Air 01/31 0613 99.5 108 20 122/70 96 Nasal Cannula 01/31 0000 Nasal 4.0L Cannula 01/30 2154 100.4 124 22 148/68 93 Room Air 01/30 2130 100.4 Intake & Output 01/31 1600 01/31 0800 01/31 0000 01/30 1600 01/30 0800 01/30 0000 Intake Total 860 900 600 320 75 Output Total Balance 860 900 600 320 75 Intake, IV 20 500 300 100 Intake, Oral 840 400 300 220 75 Number 1 Bowel Movements Patient 197 lb Weight Weight Bed scale Measurement Method Current Medications: Current Medications Sig/Elvira Start time Last Medication Dose Route Stop Time Status Admin Acetaminophen 1,000 MG ONCE ONE 01/30 2115 DC 01/30 N/A 1 UNIT IV 01/30 Acetaminophen 650 MG Q4P PRN 01/30 0830 AC 01/30 PO 0859 Aspirin 81 MG DAILY 01/30 1134 AC 01/31 PO 0925 Atorvastatin Calcium 40 MG 1700 01/30 1700 AC 01/31 PO 1645 Azithromycin 500 MG Q24H 01/31 1700 AC 01/31 Sodium Chloride 250 ML IV 1645 Azithromycin 500 MG Q24H 01/30 1430 DC 01/30 Sodium Chloride 250 ML IV 1711 Ceftriaxone Sodium 1,000 MG Q24H 01/30 1430 AC 01/31 IV 1509 Furosemide 20 MG DAILY 01/31 1501 AC 01/31 PO 1509 Lidocaine 1 PAT DAILY 01/31 1615 AC 01/31 TOP 1645 Ondansetron HCl 4 MG ONCE ONE 01/30 1900 DC 01/30 IV 01/30 190 2000 Pantoprazole Sodium 40 MG BID 01/30 2100 AC 01/31 IV 0926 Pantoprazole Sodium 40 MG DAILY 01/30 1847 CAN IV Pantoprazole Sodium 40 MG DAILY 01/30 1445 DC 01/30 IV 1708 Polyethylene Glycol 17 GM DAILY 01/30 1945 AC PO Polyethylene Glycol 17 GM ONCE ONE 01/30 1900 DC 01/30 PO 01/30 1902009 Senna 187 MG AT BEDTIME 01/30 2100 AC 01/30 PO 2009 Sodium Chloride 500 ML BOLUS ONE 01/30 1900 DC 01/30 IV 01/30 Results Last 48 Hrs of Labs/Mics: Laboratory Tests 01/31/18 0640: Anion Gap 12, Estimated GFR > 60, BUN/Creatinine Ratio 16.3, CBC w Diff NO MAN DIFF REQ, RBC 3.65 L, MCV 93.8, MCH 31.9 H, MCHC 34.0, RDW 13.7, MPV 7.8, Gran % 79.8 H, Lymphocytes % 7.4 L, Monocytes % 3.1, Eosinophils % 9.7 H, Basophils % 0, Absolute Granulocytes 8.4 H, Absolute Lymphocytes 0.8 L, Absolute Monocytes 0.3, Absolute Eosinophils 1.0, Absolute Basophils 0 01/30/18 1931: Lactic Acid Cancelled 01/30/18 1520: Troponin I 0.64 *H, TB Test (QFT) Mitogen Pending, TB Test Mitogen - Nil Pending , TB Test Antigen - Nil Pending, TB Test (QFT) Interp Pending 01/30/18 1208: Lactic Acid 1.1 01/30/18 0923: Anion Gap 12, Estimated GFR > 60, BUN/Creatinine Ratio 16.0, Total Bilirubin 0.7 , Direct Bilirubin 0.3, AST 36, ALT 76 H, Alkaline Phosphatase 90, Total Protein 5.4 L, Albumin 3.1 L, CBC w Diff MAN DIFF ORDERED, RBC 3.75 L, MCV 94.0, MCH 32.0 H, MCHC 34.1, RDW 13.6, MPV 7.6, Gran % 86.1 H, Lymphocytes % 7.0 L, Monocytes % 2.4, Eosinophils % 4.4, Basophils % 0.1, Absolute Granulocytes 10.8 H, Segmented Neutrophils 70, Band Neutrophils 14 H, Absolute Lymphocytes 0.9 L, Lymphocytes 8 L, Monocytes 4, Absolute Monocytes 0.3, Eosinophils 4, Absolute Eosinophils 0.6, Absolute Basophils 0, Platelet Estimate ADEQUATE, Polychromasia 1+, Basophilic Stippling 1+, Anisocytosis 1+ 01/30/18 0500: Urinalysis LIGHT H, Urine Color YEL, Urine Clarity HAZY H, Urine pH 6.0, Ur Specific [place] 1.025, Urine Protein 100 H, Urine Ketones 40 H, Urine Nitrite NEG, Urine Bilirubin POS@ICTO H, Urine Urobilinogen 1.0, Ur Leukocyte Esterase NEG, Ur Microscopic SEDIMENT EXAMINED, Urine RBC 50-75 H, Urine WBC 5-10 H, Ur Epithelial Cells FEW, Urine Bacteria MOD H, Granular Casts FEW H, Urine Hemoglobin LARGE H, Urine Glucose NEG 01/30/18 0415: Troponin I 1.50 *H 01/29/18 2005: Troponin I 1.47 *H 01/29/18 2000: PT Cancelled, INR Cancelled Microbiology 01/30 142 URINE ROUT: Legionella Antigen - COMP 01/30 1429 URINE ROUT: Streptococcus pneumoniae Antigen (M - COMP 01/29/18 2005: Troponin I 1.47 *H 01/29/18 2000: PT Cancelled, INR Cancelled Microbiology 01/30 142 URINE ROUT: Legionella Antigen - COMP 01/30 1429 URINE ROUT: Streptococcus pneumoniae Antigen (M - COMP
[2018-01-31 22:29] VITALS: BP 108/72
--- NOTE | 2018-02-01 05:40 | PN- Housestaff ---
Main Servin 02/01/18 0540: Subjective Follow-up For: Fever Pericardial effusion Elevated troponin Possible pneumonia Tele-Events Since Last Visit: NSR overnight, with Sinus tachy from 106-110 Subjective: Patient seen sitting comfortably at the bedside, in no acute distress. The patient complains of chest pain, bilaterally that is different in nature than the chest pain he has been reporting before, and worse upon deep inspiration, and occurs more when he is fully reclining as opposed to sitting upright. He also reports midepigastric pain, which is worse after he eats and usually comes around the afternoon. The patient's headache continues, and he reports that Tylenol has not been helping. At home he takes Motrin. The patient denies shortness of breath and is not on oxygen this morning. He also denies palpitations or dizziness. Review of Systems Constitutional: Denies: chills, fever, weakness. Cardiovascular: Reports: chest pain, orthopena. Denies: edema, palpitations. Respiratory: Reports: cough. Denies: short of breath, sputum production, wheezing. Gastrointestinal: Reports: abdominal pain. Denies: diarrhea, bowel incontinence, nausea, vomiting. Neurological/Psychological: Denies: headache. Objective Last 24 Hrs of Vital Signs/I&O Vital Signs Date Time Temp Pulse Resp B/P B/P Pulse O2 O2 Flow FiO2 Mean Ox Delivery Rate 02/01 0800 Room Air 02/01 0626 98.9 114 22 102/64 96 Room Air 02/01 0101 99.0 02/01 0053 100.0 01/31 2344 100.0 01/31 2229 101.2 117 28 108/72 94 01/31 2224 101.2 01/31 2036 Room Air 01/31 1600 Room Air 01/31 1418 99.9 122 18 110/70 94 Room Air Intake & Output 02/01 1600 02/01 0800 02/01 0000 Intake Total 380 380 Output Total Balance 380 380 Intake, Oral 380 380 Patient 90.01 kg Weight Physical Exam General Appearance: Alert, Oriented X3, Cooperative, No Acute Distress HEENT: Atraumatic, PERRLA, Exudate present on patient's tongue Neck: Supple, No JVD, No thryomegaly Lymphatic: Negative cervical nodes Cardiovascular: Regular Rate, Normal S1, Normal S2, No Murmurs Lungs: Clear to Auscultation, Some crackles bilateral bases Abdomen: Normal Bowel Sounds, Soft, Tender in the LUQ and epigastrium Neurological: Normal Gait, Normal Speech, Strength at 5/5 X4 Ext Extremities: No Clubbing, No Cyanosis, No Edema Assessment/Plan Assessment: 47 year old male with PMH of HTN and HEIDI with recent travel to [facility], presented to the ED with fever, chills, cough and chest pain, found to have elevated troponins with low-voltage EKG. Today he has pleuritic type chest pain, and recheck of his troponins found them at 0.07 from a peak of 1.56 at admission. The patient also complains of abdominal pain and continued sore throat. He does endorse orthopnea, and says he is quite comfortable sitting upright, but grows dyspneic upon reclining. His headache continues, but Tylenol does not help him. His kidney function is within normal limits, but urinalysis had showed significant proteinuria as well as granular casts and positive bilirubin. Abdominal ultrasound did not find any specific abnormalities, but did suggest further evaluation with advanced imaging if the patient's clinical situation indicates. QuantiFERON gold came back negative as well. Patient likely experiencing myocardial infarction in the setting of fever/tachycardia secondary to infectious process. Problems: 1. Myocardial infarction 2. Fever 3. Pericardial effusion Plan: * F/u rapid strep test (does not meet [facility]OR criteria), but f/u throat culture * Repeat urinalysis * Continue ceftriaxone and azithromycin * Discuss with cardiology ibuprofen versus colchicine for possible pericarditis pain Full Code Mechanical DVT prophylaxis, patient refused heparin Regular Diet Labs: Mg++, CBC Problem List: 1. Fever 2. Pneumonia 3. Pericardial effusion 4. Elevated troponin 5. Myocardial infarct Pain Ratin Pain Location: chest Pain Goal: Pain 4 or less Pain Plan: none Tomorrow's Labs & Rationales: mg+ cbc Tamara Sharp MD 02/01/18 1441: Attending MD Review Statement Attending Statement Attending MD Statement: examined this patient, discuss w/resident/PA/FRYER OPERATOR, agreed w/resident/PA/FRYER OPERATOR, reviewed EMR data (avail), discussed with nursing, discussed with case mgmt, amended to note Attending Assessment/Plan: Patient seen and examined. No issues overnight on telemetry monitoring. Complains of bilateral chest pain today. Pain is worsened with respiration. Likely secondary to his underlying pneumonia. Denies epigastric discomfort today. Denies nausea vomiting. Denies abdominal pain. On exam however he does have mild right upper quadrant tenderness with no rebound or guarding. Bowel sounds are normal. He has mild crackles in the lung bases bilaterally and trace peripheral edema. Problems: 1. Myocardial infarction 2. Pericardial effusion 3. Pulmonary vascular congestion 4. Sepsis secondary to bilateral pneumonia 5. Right upper quadrant tenderness. Plan: -Patient still having episodes of fever. Continue current antibiotic course. So far blood cultures are negative and he has no sputum production. -Troponin elevation raises concern for myocardial infarction. He does have ST changes on his EKG however they are very nonspecific. He is being managed with aspirin and statin therapy. Heparin was not initiated due to concern of hemorrhagic conversion of his pericardial effusion. -Follow-up with cardiology service regarding need for ischemic workup once his infection has resolved. -He does appear to have a small degree of volume overload. Now that his blood pressure is more stable will diurese with Lasix intravenously. Transaminases were mildly elevated on admission-mild right upper quadrant tenderness on exam. Right upper quadrant sonogram showed physiologically distended gallbladder and the liver appeared grossly unremarkable. If abdominal discomfort persists and LFTs remain elevated will consider obtaining MRI of the abdomen. Repeat LFTs in a.m.
[2018-02-01 06:26] VITALS: BP 102/64
[2018-02-01 09:07] LABS: ABSOLUTE BASOPHIL COUNT 0 /CUMM (0.0-0.2); ABSOLUTE EOSINOPHIL COUNT 1.2 /CUMM (0.0-0.7); ABSOLUTE GRANULOCYTE CT 7.2 /CUMM (1.4-6.5); ABSOLUTE MONOCYTE COUNT 0.6 /CUMM (0.10-0.60); BASOPHIL % 0.2 % (0.0-2.0); EOSINOPHIL % 12.5 % (0-5); GRANULOCYTE % 71.7 % (42.2-75.2); HEMATOCRIT 32.6 % (42-52); MEAN CORPUSCULAR HGB 32.2 PG (27.0-31.0); MEAN CORPUSCULAR HGB CONC 34.9 G/DL (33.0-37.0); MEAN CORPUSCULAR VOLUME 92.3 FL (80.0-94.0); MEAN PLATELET VOLUME 7.1 FL (7.4-10.4); PLATELET COUNT 356 /CUMM (130-400); RBC DISTRIBUTION WIDTH 13.8 % (11.5-14.5); RED BLOOD CELL CT 3.54 /CUMM (4.70-6.10)
--- NOTE | 2018-02-01 13:07 | PN- Infect Dx ---
Subjective Subjective: T-max 101.2. He complains of bilateral chest pain, worse with movement and inspiration, but denies any cough or shortness of breath. He also continues to complain of mouth and throat discomfort and a headache. His abdominal pain has improved. Objective Last 24 Hrs of Vital Signs/I&O Vital Signs Date Time Temp Pulse Resp B/P B/P Pulse O2 O2 Flow FiO2 Mean Ox Delivery Rate 02/01 0800 Room Air 02/01 0626 98.9 114 22 102/64 96 Room Air 02/01 0101 99.0 02/01 0053 100.0 01/31 2344 100.0 01/31 2229 101.2 117 28 108/72 94 01/31 2224 101.2 01/31 2036 Room Air 01/31 1600 Room Air 01/31 1418 99.9 122 18 110/70 94 Room Air Intake & Output 02/01 1600 02/01 0800 02/01 0000 Intake Total 380 380 Output Total Balance 380 380 Intake, Oral 380 380 Patient 198 lb Weight Physical Exam Other Physical Findings: He appears mildly uncomfortable but in no acute distress HEENT mild erythema of the pharynx Chest tender on palpation over the chest Lungs bibasilar crackles Heart regular rhythm with no murmur Abdomen is soft, mildly tender on palpation of the epigastrium, right upper quadrant and right lower quadrant, with positive bowel sounds Extremities trace edema both lower extremities Results Last 24 Hours of Lab Results: Laboratory Tests 02/01 0845 Chemistry Troponin I (<0.11 ng/ml) 0.07 Hematology CBC w Diff NO MAN DIFF REQ WBC (4.8 - 10.8 /CUMM) 10.0 RBC (4.70 - 6.10 /CUMM) 3.54 L Hgb (14.0 - 18.0 G/DL) 11.4 L Hct (42 - 52 %) 32.6 L MCV (80.0 - 94.0 FL) 92.3 MCH (27.0 - 31.0 PG) 32.2 H MCHC (33.0 - 37.0 G/DL) 34.9 RDW (11.5 - 14.5 %) 13.8 Plt Count (130 - 400 /CUMM) 356 MPV (7.4 - 10.4 FL) 7.1 L Gran % (42.2 - 75.2 %) 71.7 Lymphocytes % (20.5 - 51.1 %) 9.6 L Monocytes % (1.7 - 9.3 %) 6.0 Eosinophils % (0 - 5 %) 12.5 H Basophils % (0.0 - 2.0 %) 0.2 Absolute Granulocytes (1.4 - 6.5 /CUMM) 7.2 H Absolute Lymphocytes (1.2 - 3.4 /CUMM) 1.0 L Absolute Monocytes (0.10 - 0.60 /CUMM) 0.6 Absolute Eosinophils (0.0 - 0.7 /CUMM) 1.2 Absolute Basophils (0.0 - 0.2 /CUMM) 0 Last 24 Hours of Jeffrey Results: Throat culture January 31 negative Blood cultures x 2 January 29 negative Recent Imaging Studies: Dopplers of both lower extremities January 31 negative VQ scan January 30 very low probability of pulmonary embolism Assessment/Plan ID Impression: Persistent chest pain, pleuritic in nature, with persistent fevers, though his white blood cell count has normalized, on Ceftriaxone and Azithromycin, Day 3 of treatment for possible atypical pneumonia. He has multiple complaints, including headache, throat pain and mild abdominal discomfort, suggesting a possible viral process. His echocardiogram only revealed a small pericardial effusion, but with low voltage on his EKG and relief of his chest pain with leaning forward, pericarditis remains a possibility. There still appears to be some element of fluid overload, and he has been started on a diuretic. Of note his QuantiFERON has come back negative. Suggestion: 1. Further diuresis per Cardiology 2. Continue Ceftriaxone and Azithromycin
[2018-02-01 14:24] VITALS: BP 98/64
--- NOTE | 2018-02-01 17:53 | PN- Cardiology ---
Subjective Subjective: * Patient has a constant chest discomfort that is more severe lying back than being upright. * Cardiac enzymes have trended down. Objective Vital Signs and I&Os Vital Signs Date Time Temp Pulse Resp B/P B/P Pulse O2 O2 Flow FiO2 Mean Ox Delivery Rate 02/01 1600 Room Air 02/01 1424 97.4 102 22 98/64 96 Room Air 02/01 0800 Room Air 02/01 0626 98.9 114 22 102/64 96 Room Air 02/01 0101 99.0 02/01 0053 100.0 01/31 2344 100.0 01/31 2229 101.2 117 28 108/72 94 01/31 222 101.2 01/31 2036 Room Air Intake & Output 02/01 1600 02/01 0800 02/01 0000 01/31 1600 01/31 0801/31 0000 Intake Total 800 380 380 860 900 Output Total Balance 800 380 380 860 900 Intake, IV 20 500 Intake, Oral 800 380 380 840 400 Number 1 Bowel Movements Patient 198 lb Weight Physical Exam: General: WD/WN male in NAD; alert and oriented x 3 HEENT: NC/AT, PERRL, EOMI Neck: No JVD, no bruits. Lungs: no crackles or wheezing Heart: Tachycardic and regular Extremities: No edema. Assessment/Plan Assessment/Plan * This patient has positional chest pain with diffuse ST elevations, low voltage and pericardial effusion along with evidence of infection. I suspect that his troponin rise is due to a combined pericarditis and myocarditis. His enzymes have normalized despite continued chest discomfort. Begin Indomethacin 75mg BID for pericarditis. * This patient has a pericardial effusion and in this setting may be pre-load dependent and sensitive to dehydration. As such, he may be tachycardic due to diuresis. Hold diuretics and obtain a chest X-ray. Continue telemetry? Yes
[2018-02-01 21:53] VITALS: BP 118/68
--- NOTE | 2018-02-01 22:24 | Patient Discharge Instructions ---
Discharge Instructions General Discharge Information You were seen/treated for: Myocardial infarction and pericardial effusion Special Instructions: Please follow up with your primary care and channel development director about your recent hospitalization. Diet Continue normal diet: Yes Recommended Diet: Regular Activity Full Activity/No Limits: No Activity Self Limited: Yes Acute Coronary Syndrome Inclusion Criteria At DC or during hospital stay patient has or had the following: ACS DIAGNOSIS No Discharge Core Measures Meds if any: Prescribed or Continued at Discharge Meds if any: NOT Prescribed or Continued at Discharge Congestive Heart Failure Inclusion Criteria At DC or during hospital stay patient has or had the following: CHF DIAGNOSIS No Discharge Core Measures Meds if any: Prescribed or Continued at Discharge Meds if any: NOT Prescribed or Continued at Discharge Cerebrovascular accident Inclusion Criteria At DC or during hospital stay patient has or had the following: CVA/TIA Diagnosis No Discharge Core Measures Meds if any: Prescribed or Continued at Discharge Meds if any: NOT Prescribed or Continued at Discharge Venous thromboembolism Inclusion Criteria VTE Diagnosis No VTE Type NONE VTE Confirmed by (Test) NONE Discharge Core Measures - Per Current guidelines, there needs to be overlap - treatment for the first 5 days of Warfarin therapy. - If discharged on Warfarin prior to 5 days of - overlap therapy, the patient will need to be - assessed for post discharge needs including - *Post discharge parental anticoagulation - *Warfarin and/or parental anticoagulation education - *Follow up date to check INR post discharge At least 5 days overlap therapy as Inpatient No Meds if any: Prescribed or Continued at Discharge Note: Overlap Therapy is Warfarin and Anticoagulant Meds if any: NOT Prescribed or Continued at Discharge
--- NOTE | 2018-02-01 23:30 | RADIOLOGY REPORT ---
EXAMINATION: XR CHEST CLINICAL INFORMATION: Positional chest pain COMPARISON: Chest x-ray 12/30/2017 TECHNIQUE: 2 views of the chest were obtained. FINDINGS: There is a small patchy infiltrate at the left lung base posteriorly. There is a small pleural effusion blunting the costophrenic angle on the left posteriorly. The right lung is clear. There is no pulmonary vascular congestion. IMPRESSION: Small patchy left lower lobe infiltrate with left pleural effusion.
--- NOTE | 2018-02-02 06:19 | PN- Housestaff ---
Main Servin 02/02/18 0619: Subjective Follow-up For: Fever Pericardial effusion Elevated troponin Possible pneumonia Tele-Events Since Last Visit: Sinus tachycardia into the 110's Subjective: Patient seen resting comfortably in the bed, overnight the patient spiked a fever to 101.3F. He currently reports improved headache, chest pain, abdominal pain, and denies shortness of breath or dizziness. He is ambulating well without the oxygen, and refused mechanical DVT prophylaxis today, heparin was given. Review of Systems Constitutional: Denies: chills, fever, weakness. Cardiovascular: Denies: chest pain, palpitations, peripheral edema. Respiratory: Reports: cough, sputum production. Denies: short of breath. Gastrointestinal: Denies: abdominal pain, diarrhea, nausea, vomiting. Musculoskeletal: Denies: joint pain, muscle stiffness, neck pain. Neurological/Psychological: Denies: anxiety, depressed, numbness, paresthesia. Objective Last 24 Hrs of Vital Signs/I&O Vital Signs Date Time Temp Pulse Resp B/P B/P Pulse O2 O2 Flow FiO2 Mean Ox Delivery Rate 02/02 1430 98.3 81 16 108/70 94 Room Air 02/02 0800 93 Room Air 02/02 0655 100.0 109 18 110/66 93 Room Air 02/01 2300 98.7 02/01 2300 98.7 02/01 2153 101.3 107 18 118/68 93 Room Air 02/01 2143 101.3 Intake & Output 02/02 1600 02/02 0800 02/02 0000 Intake Total 800 480 720 Output Total Balance 800 480 720 Intake, IV 300 Intake, Oral 800 480 420 Number 1 Bowel Movements Patient 89.811 kg Weight Weight Chair scale Measurement Method Physical Exam General Appearance: Alert, Oriented X3, Cooperative, No Acute Distress HEENT: Atraumatic, PERRLA, EOMI Neck: Supple, No JVD, No thryomegaly, +2 Carotid Pulse wo Bruit Cardiovascular: Normal S1, Normal S2, No Murmurs, Tachycardic Lungs: Clear to Auscultation Abdomen: Normal Bowel Sounds, Soft, No Tenderness Neurological: Normal Gait, Normal Speech, Strength at 5/5 X4 Ext Extremities: No Clubbing, No Cyanosis, No Edema Assessment/Plan Assessment: 47 year old male with PMH of HTN and HEIDI with recent travel to [facility], presented to the ED with fever, chills, cough and chest pain, found to have elevated troponins with low-voltage EKG. Today his chest pain is improved, and his abdominal pain and sore throat are bothering him less as well. He does endorse orthopnea, and says he is quite comfortable sitting upright, but grows dyspneic upon reclining. His headache also is much improved. Overnight the patient spiked a fever to 101.3 Fahrenheit, and WBC count is 10.9, slightly elevated. Patient being treated for endocarditis, myocarditis also likely in the setting of troponins upon admission, will follow EKG's as pericarditis improves to evaluate for infarction. Problems: 1. Pericarditis with pericardial effusion 2. Fever 3. Myocardial infarction (possible) Plan: * Indomethacin for pericarditis * Continue ceftriaxone and azithromycin * F/u rapid strep test (does not meet CENTOR criteria), but f/u throat culture * Stopped Lasix/diuresis Full Code Patient refused mechanical DVT prophylaxis, heparin given Regular Diet Labs: Mg++, CBC Problem List: 1. Elevated troponin 2. Pericardial effusion 3. Fever 4. Pneumonia 5. Myocardial infarct Pain Ratin Pain Location: none Pain Goal: Pain 4 or less Pain Plan: per pathway Tomorrow's Labs & Rationales: CBC & BEP Mariela Powell 02/02/18 1358: Attending MD Review Statement Attending Statement Attending MD Statement: examined this patient, discuss w/resident/PA/SUPERVISOR SOLDERING, agreed w/resident/PA/SUPERVISOR SOLDERING, reviewed EMR data (avail), discussed with nursing, discussed with case mgmt Attending Assessment/Plan: acute pericarditis- still having fevers. trop trended down. plan is to cont indomethacin and if staying afebrile by tomorrow am will plan dc tomorrow. chest pain better now. Pneumonia- cont on ceftrixone and zithromax. d/w pt the care plan.
[2018-02-02 06:55] VITALS: BP 110/66
--- NOTE | 2018-02-02 08:07 | PN- Cardiology ---
Subjective Subjective: * No shortness of breath and his chest discomfort is much improved after receiving Indomethacin. He still has a pleuritc chest discomfort with deep inhalation. * Elevated WBC count has normalized and fever has come down. Objective Vital Signs and I&Os Vital Signs Date Time Temp Pulse Resp B/P B/P Pulse O2 O2 Flow FiO2 Mean Ox Delivery Rate 02/02 0655 100.0 109 18 110/66 93 Room Air 02/01 2300 98.7 02/01 2300 98.7 02/01 2153 101.3 107 18 118/68 93 Room Air 02/01 2143 101.3 02/01 1600 Room Air 02/01 1424 97.4 102 22 98/64 96 Room Air Intake & Output 02/02 1600 02/02 0800 02/02 0000 02/01 0802/01 0000 Intake Total 480 720 800 380 380 Output Total Balance 480 720 800 380 380 Intake, IV 300 Intake, Oral 480 420 800 380 380 Patient 198 lb 198 lb Weight Weight Chair scale Measurement Method Physical Exam: General: WD/WN male in NAD; alert and oriented x 3 HEENT: NC/AT, PERRL, EOMI Neck: No JVD, no bruits. Lungs: no crackles or wheezing Heart: Tachycardic and regular Extremities: No edema Assessment/Plan Assessment/Plan * This patient has positional chest pain with diffuse ST elevations, low voltage and pericardial effusion along with evidence of infection. I suspect that his troponin rise is due to a combined pericarditis and myocarditis. His enzymes have normalized despite continued chest discomfort. He is doing better on Indomethacin 75mg BID which should be continued for 3 weeks for pericarditis. * This patient has a pericardial effusion and in this setting may be pre-load dependent and sensitive to dehydration. As such, he may be tachycardic due to diuresis. Hold diuretics as there is no evidence of pulmonary edema or decompensated CHF. Continue telemetry? Yes
[2018-02-02 09:16] LABS: ABSOLUTE BASOPHIL COUNT 0 /CUMM (0.0-0.2); ABSOLUTE EOSINOPHIL COUNT 1.3 /CUMM (0.0-0.7); ABSOLUTE GRANULOCYTE CT 8.1 /CUMM (1.4-6.5); ABSOLUTE MONOCYTE COUNT 0.6 /CUMM (0.10-0.60); BASOPHIL % 0.2 % (0.0-2.0); EOSINOPHIL % 11.6 % (0-5); GRANULOCYTE % 73.9 % (42.2-75.2); HEMATOCRIT 33.5 % (42-52); MEAN CORPUSCULAR HGB 32.3 PG (27.0-31.0); MEAN CORPUSCULAR HGB CONC 34.6 G/DL (33.0-37.0); MEAN CORPUSCULAR VOLUME 93.4 FL (80.0-94.0); PLATELET COUNT 449 /CUMM (130-400); RBC DISTRIBUTION WIDTH 14.1 % (11.5-14.5); RED BLOOD CELL CT 3.59 /CUMM (4.70-6.10); WHITE BLOOD CELL COUNT 10.9 /CUMM (4.8-10.8)
--- NOTE | 2018-02-02 11:39 | PN- Infect Dx ---
Subjective Subjective: T-max 101.3. He feels improved today, with no headache, sore throat or abdominal discomfort. His chest pain has improved, and he reports no cough or shortness of breath. Objective Last 24 Hrs of Vital Signs/I&O Vital Signs Date Time Temp Pulse Resp B/P B/P Pulse O2 O2 Flow FiO2 Mean Ox Delivery Rate 02/02 0800 93 Room Air 02/02 0655 100.0 109 18 110/66 93 Room Air 02/01 2300 98.7 02/01 2300 98.7 02/01 2153 101.3 107 18 118/68 93 Room Air 02/01 2143 101.3 02/01 1600 Room Air 02/01 1424 97.4 102 22 98/64 96 Room Air Intake & Output 02/02 1600 02/02 0800 02/02 0000 Intake Total 480 720 Output Total Balance 480 720 Intake, IV 300 Intake, Oral 480 420 Patient 198 lb Weight Weight Chair scale Measurement Method Physical Exam Other Physical Findings: He appears comfortable in no acute distress Skin diaphoretic Lungs bibasilar crackles Heart regular rhythm with no murmur Abdomen is mildly distended, nontender with positive bowel sounds Extremities trace edema both lower extremities Results Last 24 Hours of Lab Results: Laboratory Tests 02/02 08 Hematology CBC w Diff NO MAN DIFF REQ WBC (4.8 - 10.8 /CUMM) 10.9 H RBC (4.70 - 6.10 /CUMM) 3.59 L Hgb (14.0 - 18.0 G/DL) 11.6 L Hct (42 - 52 %) 33.5 L MCV (80.0 - 94.0 FL) 93.4 MCH (27.0 - 31.0 PG) 32.3 H MCHC (33.0 - 37.0 G/DL) 34.6 RDW (11.5 - 14.5 %) 14.1 Plt Count (130 - 400 /CUMM) 449 H MPV (7.4 - 10.4 FL) 7.0 L Gran % (42.2 - 75.2 %) 73.9 Lymphocytes % (20.5 - 51.1 %) 9.2 L Monocytes % (1.7 - 9.3 %) 5.1 Eosinophils % (0 - 5 %) 11.6 H Basophils % (0.0 - 2.0 %) 0.2 Absolute Granulocytes (1.4 - 6.5 /CUMM) 8.1 H Absolute Lymphocytes (1.2 - 3.4 /CUMM) 1.0 L Absolute Monocytes (0.10 - 0.60 /CUMM) 0.6 Absolute Eosinophils (0.0 - 0.7 /CUMM) 1.3 Absolute Basophils (0.0 - 0.2 /CUMM) 0 Last 24 Hours of Jeffrey Results: Blood cultures x 2 January 29 negative Recent Imaging Studies: Chest x-ray February 01 small patchy left lower lobe infiltrate with a left pleural effusion Assessment/Plan ID Impression: Appears improved today, with resolution of many of his symptoms and with decreased chest pain, though he remains febrile on Ceftriaxone and Azithromycin, Day 4 of treatment for possible atypical pneumonia. Pericarditis remains a concern, with ST elevations and low voltage on his EKG, and he has been started on Indocin this morning (after 1 dose of Ibuprofen yesterday afternoon). His Lasix has been discontinued per Cardiology. Suggestion: 1. Further management of possible pericarditis per Cardiology 2. Continue Ceftriaxone and Azithromycin
[2018-02-02 14:30] VITALS: BP 108/70
[2018-02-02 22:40] VITALS: BP 110/72
[2018-02-03 06:12] VITALS: BP 110/62
--- NOTE | 2018-02-03 06:34 | PN- Housestaff ---
Main Servin 02/03/18 0634: Subjective Follow-up For: Pericardial effusion Fever Chest pain Elevated troponins Possible pneumonia Tele-Events Since Last Visit: Normal sinus rhythm, with sinus tachycardia up to 104 bpm Subjective: Patient seen sitting comfortably at the bedside, in no acute distress. Patient reports that his chest pain and headache have not improved since yesterday. He says his chest pain is still worse with inspiration "felt in the ribs". He denies the abdominal pain, nausea or vomiting. Reports that his urination is regular, and he is ambulating well about the room without the use of supplemental oxygen. He is currently denying fever, chills or muscle aches. Review of Systems Constitutional: Denies: chills, fever, weakness. Cardiovascular: Denies: chest pain, edema, palpitations, peripheral edema. Respiratory: Reports: sputum production. Denies: cough, short of breath. Gastrointestinal: Denies: abdominal pain, nausea, vomiting. Objective Last 24 Hrs of Vital Signs/I&O Vital Signs Date Time Temp Pulse Resp B/P B/P Pulse O2 O2 Flow FiO2 Mean Ox Delivery Rate 02/03 0612 97.7 95 20 110/62 94 Room Air 02/02 2240 99.8 102 20 110/72 94 Room Air 02/02 1430 98.3 81 16 108/70 94 Room Air 02/02 0800 93 Room Air Intake & Output 02/03 0800 02/03 0000 02/02 1600 Intake Total 120 400 800 Output Total Balance 120 400 800 Intake, Oral 120 400 800 Number 1 Bowel Movements Physical Exam General Appearance: Alert, Oriented X3, Cooperative, No Acute Distress HEENT: Atraumatic, PERRLA, EOMI, Mucous Membr. moist/pink Neck: Supple, No JVD, No thryomegaly, +2 Carotid Pulse wo Bruit Cardiovascular: Regular Rate, Normal S1, Normal S2, No Murmurs Lungs: Clear to Auscultation, Normal Air Movement Abdomen: Normal Bowel Sounds, Soft, No Tenderness Neurological: Normal Gait, Normal Speech, Strength at 5/5 X4 Ext, Normal Tone Extremities: No Clubbing, No Cyanosis, No Edema Vascular: Normal Pulses Assessment/Plan Assessment: 47 year old male with PMH of HTN and HEIDI with recent travel to [facility], presented to the ED with fever, chills, cough and chest pain, found to have elevated troponins with low-voltage EKG. His chest pain and headache are still bothering him, and he does endorse orthopnea. His abdominal pain is improved. Overnight the patient was afebrile, white count is now 11.0. Patient is being treated for endocarditis, myocarditis also likely in the setting of troponins upon admission. Throat culture was negative for strep B, and culture showed mixed nohemi. Problems: 1. Pericarditis with pericardial effusion 2. Fever 3. Myocardial infarction (possible) Plan: * Indomethacin for pericarditis, to complete 3 week course and today is day 5 of * Ibuprofen for headache * Ceftriaxone discontinued * Azithromycin changed to 500 mg p.o. daily * Stopped Lasix/diuresis * Monitor BUN/Cr in the setting of NSAID and macrolide use Full Code Patient refused mechanical DVT prophylaxis, heparin given Regular Diet Labs: BEP, CBC Problem List: 1. Pneumonia 2. Pericardial effusion 3. Fever 4. Myocarditis 5. Myocardial infarct 6. Pericarditis Pain Ratin Pain Location: none Pain Goal: Pain 4 or less Pain Plan: per pathway Tomorrow's Labs & Rationales: cbc & bep PowellRigomeghna 02/03/18 1317: Attending MD Review Statement Attending Statement Attending MD Statement: examined this patient, discuss w/resident/PA/TOWN ADMINISTRATOR, agreed w/resident/PA/TOWN ADMINISTRATOR, reviewed EMR data (avail), discussed with nursing, discussed with case mgmt Attending Assessment/Plan: acute pericarditis- tmax of 100.0. trop trended down. plan is to cont indomethacin for 3 weeks total. if staying afebrile by tomorrow am will plan dc tomorrow. chest pain better now. switch to po protonix at time of discharge. Pneumonia- on zithromax now.
[2018-02-03 08:20] LABS: ABSOLUTE BASOPHIL COUNT 0.1 /CUMM (0.0-0.2); ABSOLUTE EOSINOPHIL COUNT 1.3 /CUMM (0.0-0.7); ABSOLUTE GRANULOCYTE CT 8.1 /CUMM (1.4-6.5); ABSOLUTE MONOCYTE COUNT 0.5 /CUMM (0.10-0.60); BASOPHIL % 0.8 % (0.0-2.0); EOSINOPHIL % 12.1 % (0-5); HEMATOCRIT 33.2 % (42-52); MEAN CORPUSCULAR HGB 31.8 PG (27.0-31.0); MEAN CORPUSCULAR HGB CONC 34.3 G/DL (33.0-37.0); MEAN CORPUSCULAR VOLUME 92.7 FL (80.0-94.0); MEAN PLATELET VOLUME 7.1 FL (7.4-10.4); RBC DISTRIBUTION WIDTH 13.6 % (11.5-14.5); RED BLOOD CELL CT 3.58 /CUMM (4.70-6.10)
--- NOTE | 2018-02-03 08:38 | PN- Cardiology ---
Subjective Subjective: * Patient continues to complain of pleuritic and positional chest discomfort without an exertional component. It is improved compared to admission but not resolved. He also has nightly headaches. * sinus rhythm Objective Vital Signs and I&Os Vital Signs Date Time Temp Pulse Resp B/P B/P Pulse O2 O2 Flow FiO2 Mean Ox Delivery Rate 02/03 0612 97.7 95 20 110/62 94 Room Air 02/02 2240 99.8 102 20 110/72 94 Room Air 02/02 1430 98.3 81 16 108/70 94 Room Air Intake & Output 02/03 1600 02/03 0800 02/03 0000 02/02 1600 02/02 0800 02/02 0000 Intake Total 120 400 800 480 720 Output Total Balance 120 400 800 480 720 Intake, IV 300 Intake, Oral 120 400 800 480 420 Number 1 Bowel Movements Patient 198 lb Weight Weight Chair scale Measurement Method Physical Exam: General: WD/WN male in NAD; alert and oriented x 3 HEENT: NC/AT, PERRL, EOMI Neck: No JVD, no bruits. Lungs: no crackles or wheezing Heart: RRR Extremities: No edema Assessment/Plan Assessment/Plan * This patient has positional chest pain with diffuse ST elevations, low voltage and pericardial effusion along with evidence of infection. I suspect that his troponin rise is due to a combined pericarditis and myocarditis. His enzymes have normalized despite continued chest discomfort. He is doing better on Indomethacin 75mg BID which should be continued for 3 weeks for pericarditis. * The patient now appears euvolemic with resolved tachycardia. Continue telemetry? Yes
[2018-02-03 09:04] LABS: PLATELET COUNT 469 /CUMM (130-400)
[2018-02-03 09:05] LABS: GRANULOCYTE % 73.7 % (42.2-75.2)
--- NOTE | 2018-02-03 09:35 | PN- Infect Dx ---
Subjective Subjective: T-max 100. He notes increased chest pain but has no shortness of breath or cough. He still has a headache but no further throat discomfort. He still notes mild abdominal discomfort. Objective Last 24 Hrs of Vital Signs/I&O Vital Signs Date Time Temp Pulse Resp B/P B/P Pulse O2 O2 Flow FiO2 Mean Ox Delivery Rate 02/03 0612 97.7 95 20 110/62 94 Room Air 02/02 2240 99.8 102 20 110/72 94 Room Air 02/02 1430 98.3 81 16 108/70 94 Room Air Intake & Output 02/03 1600 02/03 0800 02/03 0000 Intake Total 120 400 Output Total Balance 120 400 Intake, Oral 120 400 Physical Exam Other Physical Findings: He appears comfortable in no acute distress HEENT negative Lungs crackles at the right base Heart regular rhythm with no murmur Abdomen is distended, mildly tender on palpation of the epigastrium and right upper quadrant, with positive bowel sounds Extremities trace edema both lower extremities Results Last 24 Hours of Lab Results: Laboratory Tests 02/03 0747 Chemistry Sodium (137 - 145 mmol/L) 139 Potassium (3.5 - 5.1 mmol/L) 4.3 Chloride (98 - 107 mmol/L) 102 Carbon Dioxide (22 - 30 mmol/L) 26 Anion Gap (5 - 16) 11 BUN (9 - 20 mg/dL) 12 Creatinine (0.7 - 1.2 mg/dL) 0.8 Estimated GFR (>60 ml/min) > 60 BUN/Creatinine Ratio (7 - 25 %) 15.0 Hematology CBC w Diff NO MAN DIFF REQ WBC (4.8 - 10.8 /CUMM) 11.0 H RBC (4.70 - 6.10 /CUMM) 3.58 L Hgb (14.0 - 18.0 G/DL) 11.4 L Hct (42 - 52 %) 33.2 L MCV (80.0 - 94.0 FL) 92.7 MCH (27.0 - 31.0 PG) 31.8 H MCHC (33.0 - 37.0 G/DL) 34.3 RDW (11.5 - 14.5 %) 13.6 Plt Count (130 - 400 /CUMM) 469 H MPV (7.4 - 10.4 FL) 7.1 L Gran % (42.2 - 75.2 %) 73.7 Lymphocytes % (20.5 - 51.1 %) 8.9 L Monocytes % (1.7 - 9.3 %) 4.5 Eosinophils % (0 - 5 %) 12.1 H Basophils % (0.0 - 2.0 %) 0.8 Absolute Granulocytes (1.4 - 6.5 /CUMM) 8.1 H Absolute Lymphocytes (1.2 - 3.4 /CUMM) 1.0 L Absolute Monocytes (0.10 - 0.60 /CUMM) 0.5 Absolute Eosinophils (0.0 - 0.7 /CUMM) 1.3 Absolute Basophils (0.0 - 0.2 /CUMM) 0.1 Last 24 Hours of Jeffrey Results: No new cultures Assessment/Plan ID Impression: Overall improved, though he continues to have chest discomfort despite Indocin, which was begun yesterday for presumed pericarditis, likely viral in etiology. His fevers have improved (on Indocin) with his white blood cell count remaining mildly elevated now Day 5 of treatment, on Ceftriaxone and Azithromycin, for possible atypical pneumonia. Suggestion: 1. Further management of possible pericarditis per Cardiology 2. Discontinue Ceftriaxone 3. Change Azithromycin to 500 mg p.o. every 24 hours and continue for 2 more days
[2018-02-03] MEDS ORDERED: INDOMETHACIN25 M1 PO (13:28)
[2018-02-03] MEDS ORDERED: AZITHROMYCIN500 M3 PO (13:28)
[2018-02-03] MEDS ORDERED: ASPIRIN81 M4 PO (13:28)
[2018-02-03] MEDS ORDERED: ATORVASTATIN CA40 M1 PO (13:28)
[2018-02-03] MEDS ORDERED: OMEPRAZOLE40 M1 PO (13:30)
[2018-02-03 14:39] VITALS: BP 118/64
--- NOTE | 2018-02-03 15:40 | Discharge Summary ---
Visit Information Visit Dates Admission Date: 01/29/18 Discharge Date: 02/04/18 Hospital Course Course Attending Physician: Aron JACINTO,Tamara Primary Care Physician: Patient Has No Primary Care Dr Hospital Course: Mr. Galaviz is a 47yo M w/ PMH of HTN on lisnopril 5m qd, HEIDI on CPAP presented to ER w/ fever/chills/productive cough w/ scanty yellowish sputum and dark brown urine x 4 days, along with chest pain radiating to left/back/neck x 3 days /10 without relief, with recent travel to [facility] where he was [place]. Patient had malaria as a child 6yrs old, however no history of TB. He works as a [employer] for life without anybody got sick around him prior his trip to [facility] x 3 weeks and came back on 01/21. On 01/25 he started experiencing fever/chill/profuse night sweat/cough/low appetite, and also 01/26 he started to have chest pain mostly in center of chest, sharp, / 10, radiating to left/back/neck without any relief, some degree of SOB, intermittent lightheadedness however no exertional aggravation or any particular alleviating factors. He also complained of brownish urine however no dysuria/ frequency. Today he felt he would need to see a doctor and came to ER for eval. Patient was only seeing Dr. Beltran as PCP in outpatient, and was only taking lisinopril as home meds. At baseline patient had no exerice intolerance. 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 Medications at Discharge Discharge Medications: Continue taking these medications: Azelastine/Fluticasone (Dymista Nasal [place]) 137 MCG-50 MCG/SPRAY SPRAY.PUMP 1 [place] Both sides of nose TWICE DAILY Comments: NOT GIVEN IN HOSPITAL Levocetirizine Dihydrochloride (Xyzal) 5 MG TABLET 1 Tablet ORAL DAILY Comments: NOT GIVEN IN HOSPITAL Olopatadine HCl (Pazeo) 0.7 % DROPS 1 DROP Both Eyes DAILY Comments: NOT GIVEN IN HOSPITAL Lisinopril (Lisinopril) 5 MG TABLET 1 Tablet ORAL DAILY Comments: NOT GIVEN IN HOSPITAL Start taking the following new medications: Indomethacin (Indomethacin) 25 MG CAPSULE 3 Tablet ORAL TWICE DAILY Qty = 109 No Refills Comments: Last Taken: 02/04/18 Time: 0840 AM Atorvastatin Calcium (Atorvastatin Calcium) 40 MG TABLET 40 Milligram ORAL 5 PM Qty = 30 No Refills Instructions: . Comments: Last Taken: 02/03/18 Time: 5:00 PM Azithromycin (Azithromycin) 500 MG TABLET 1 Tablet ORAL Q24H Qty = 2 No Refills Instructions: . Comments: Last Taken: 02/03/18 Time: 5:00 PM Aspirin (Aspirin*) 81 MG TAB.CHEW 81 Milligram ORAL DAILY Qty = 30 No Refills Comments: Last Taken: 02/04/18 Time: 0840 AM Omeprazole (Omeprazole) 40 MG CAPSULE.DR 1 Capsule ORAL DAILY Qty = 30 No Refills Comments: Last Taken: 02/04/18 Time: 0840 AM IV PROTONIX GIVEN IN HOSPITAL Copies To: Kevan Beltran APRN; Tristen JACINTO,Carlos Enrique Attending MD Review Statement Documenting Attending: Tamara Sharp MD Other Findings: Discharge in stable condition. Patient was managed for bilateral pneumonia with antibiotic therapy. He also had a small pericardial effusion presumed to be secondary to pericarditis. He was also treated conservatively for elevated troponins initially thought to be secondary to myocardial infarction but following cardiology evaluation it is likely secondary to myocarditis.
[2018-02-03 21:41] VITALS: BP 122/70
[2018-02-04 06:38] VITALS: BP 108/72
[2018-02-04 08:18] LABS: ABSOLUTE BASOPHIL COUNT 0.1 /CUMM (0.0-0.2); ABSOLUTE EOSINOPHIL COUNT 1.5 /CUMM (0.0-0.7); ABSOLUTE GRANULOCYTE CT 8.5 /CUMM (1.4-6.5); ABSOLUTE LYMPH COUNT 0.9 /CUMM (1.2-3.4); ABSOLUTE MONOCYTE COUNT 0.6 /CUMM (0.10-0.60); BASOPHIL % 0.5 % (0.0-2.0); EOSINOPHIL % 13.3 % (0-5); HEMATOCRIT 32.8 % (42-52); MEAN CORPUSCULAR HGB 31.5 PG (27.0-31.0); MEAN CORPUSCULAR HGB CONC 33.8 G/DL (33.0-37.0); MEAN CORPUSCULAR VOLUME 93.1 FL (80.0-94.0); MEAN PLATELET VOLUME 7.2 FL (7.4-10.4); PLATELET COUNT 554 /CUMM (130-400); RBC DISTRIBUTION WIDTH 13.8 % (11.5-14.5); RED BLOOD CELL CT 3.52 /CUMM (4.70-6.10); WHITE BLOOD CELL COUNT 11.6 /CUMM (4.8-10.8)
--- NOTE | 2018-02-04 12:15 | PN- Housestaff ---
See Addendum Subjective Follow-up For: Pericardial effusion Fever Chest pain Elevated troponins Possible pneumonia Subjective: Patient seen sitting comfortably at the bedside, in no acute distress. Patient denies chest pain, shortness of breath, palpitations, or dizziness. He also denies fever. He reports that his previous complaints of chest pain and headache particularly have improved, and he feels ready for discharge. Overnight no acute events. Review of Systems Constitutional: Denies: chills, weakness. Cardiovascular: Denies: chest pain, orthopena, peripheral edema. Respiratory: Denies: cough, short of breath, wheezing. Gastrointestinal: Denies: abdominal pain, nausea, vomiting. Objective Last 24 Hrs of Vital Signs/I&O Vital Signs Date Time Temp Pulse Resp B/P B/P Pulse O2 O2 Flow FiO2 Mean Ox Delivery Rate 02/04 0638 99.5 71 18 108/72 94 Room Air 02/03 2141 99.0 86 20 122/70 98 02/03 1439 98.7 82 20 118/64 95 Room Air Intake & Output 02/04 1600 02/04 0800 02/04 0000 Intake Total 660 660 Output Total Balance 660 660 Intake, Oral 660 660 Physical Exam General Appearance: Alert, Oriented X3, Cooperative, No Acute Distress HEENT: Atraumatic, PERRLA, EOMI, Mucous Membr. moist/pink Neck: Supple, No JVD, No thryomegaly, +2 Carotid Pulse wo Bruit Cardiovascular: Regular Rate, Normal S1, Normal S2, No Murmurs Lungs: Clear to Auscultation Abdomen: Normal Bowel Sounds, Soft, No Tenderness Neurological: Normal Gait, Normal Speech, Strength at 5/5 X4 Ext Extremities: No Clubbing, No Cyanosis, No Edema Current Medications: Current Medications Sig/Elvira Start time Last Medication Dose Route Stop Time Status Admin Acetaminophen 650 MG Q4P PRN 01/30 0830 AC 02/01 PO 2143 Aspirin 81 MG DAILY 01/30 1134 AC 02/04 PO 0839 Atorvastatin Calcium 40 MG 1700 01/30 1700 AC 02/03 PO 1652 Azithromycin 500 MG Q24H 02/03 1700 AC 02/03 PO 1652 Heparin Sodium 5,000 UNIT DAILY 02/01 0900 AC 02/04 (Porcine) SC 0839 Ibuprofen 400 MG Q8P PRN 02/03 0815 AC 02/03 PO 2014 Indomethacin Sodium 75 MG BID 02/02 0900 AC 02/04 PO 0838 Lidocaine 1 PAT 1700 02/01 1700 AC 02/03 TOP 1653 Pantoprazole Sodium 40 MG BID 01/30 2100 AC 02/04 IV 0839 Patient Medication 1 ED ONE ONE 02/03 1430 [place] Teaching ED 02/03 1431 Polyethylene Glycol 17 GM DAILY 01/30 1945 AC 02/01 PO 0810 Senna 187 MG AT BEDTIME 01/30 2100 AC 02/03 PO 2014 Last 24 Hrs of Lab/Jeffrey Results Last 24 Hrs of Labs/Mics: Laboratory Tests 02/04/18 0710: Anion Gap 9, Estimated GFR > 60, BUN/Creatinine Ratio 13.3, CBC w Diff MAN DIFF ORDERED, RBC 3.52 L, MCV 93.1, MCH 31.5 H, MCHC 33.8, RDW 13.8, MPV 7.2 L, Gran % 73.0, Lymphocytes % 8.0 L, Monocytes % 5.2, Eosinophils % 13.3 H, Basophils % 0.5, Absolute Granulocytes 8.5 H, Segmented Neutrophils 66, Band Neutrophils 5, Absolute Lymphocytes 0.9 L, Lymphocytes 11 L, Monocytes 3, Absolute Monocytes 0.6, Eosinophils 14 H, Absolute Eosinophils 1.5, Basophils 1 , Absolute Basophils 0.1, Platelet Estimate INCREASED, Hypochromic-Microcytic 1+ , Anisocytosis 1+ Assessment/Plan Assessment: 47 year old male with PMH of HTN and HEIDI with recent travel to [facility], presented to the ED with fever, chills, cough and chest pain, found to have elevated troponins with low-voltage EKG. His chest pain and headache are still bothering him, and he does endorse orthopnea. His abdominal pain is improved. Overnight the patient was afebrile, white count is now 11.6. Renal function within normal limits, creatinine 0.9 and BUN 12. Patient is being treated for endocarditis, myocarditis also likely in the setting of troponins upon admission. Problems: 1. Pericarditis with pericardial effusion 2. Fever 3. Myocardial infarction (possible) Plan: * Indomethacin for pericarditis, to complete 3 week course and today is day 6 of 21 * Ibuprofen for headache * Azithromycin 500 mg p.o. daily, 1 day remaining * Monitor BUN/Cr in the setting of NSAID and macrolide use Full Code Patient refused mechanical DVT prophylaxis, heparin given Regular Diet Labs: None, patient for discharge Problem List: 1. Myocarditis 2. Pericarditis 3. Pneumonia 4. Myocardial infarct 5. Fever 6. Pericardial effusion 7. Elevated troponin Pain Ratin Pain Location: none Pain Goal: Pain 4 or less Pain Plan: Per pathway Tomorrow's Labs & Rationales: None
[2018-02-04] MEDS ORDERED: INDOMETHACIN25 M1 PO ×2 (12:41→13:04)
[2018-02-04] MEDS ORDERED: AZITHROMYCIN500 M3 PO ×2 (12:43→13:04)
[2018-02-04] MEDS ORDERED: ATORVASTATIN CA40 M1 PO (13:04)
== END 2018-02-04 14:00 | DRG 207 ==
LOC: ERH 12:39 → 1NO 14:05 → ERHI 14:05 → ENRESERV 17:04 → ENTRNSPT 18:10 → EDTRNSPT 18:15 → EDTRNSPTSTS 18:15 → EDTRNSPT 18:36 → 1NO 21:12 → CMPTRNSPT 21:55 → 1NO 01-30 09:52 → ENPENDDIS 02-04 13:04 → 1NO 02-04 14:00
PROVIDERS: Physician Assistant Medical; Student in an Organized Health Care Education/Training Program
DX: I30.9 Acute pericarditis, unspecified (principal); J18.9 Pneumonia, unspecified organism; G47.33 Obstructive sleep apnea (adult) (pediatric); E78.5 Hyperlipidemia, unspecified; R73.03 Prediabetes
CPT/HCPCS: 1NP; 86480; 86618; 36415; 36592; 71046; 78582; 81001; 82436; 83010; 87040; 87070; 87389; 87449; 87450; 93005; 93010; 93306; 93970; 96374; 96375; A9540; A9558; J0131; J0456; J0696; J0713; J1644; J2405; J3101; J3370; J3490; J7040